=== PATIENT | female | born 1970 | race Asian ===

== ENCOUNTER 2020-08-22 14:40 | Outpatient (REF) | payer OTHER, SELFPAY | END 2020-08-22 14:41 | disposition home or self-care (01) | LOC: HO.LNP 14:40 | PROVIDERS: Visit Provider Family Medicine | DX: Z20.822 Contact with and (suspected) exposure to COVID-19 (principal) | CPT/HCPCS: U0003 ==

== ENCOUNTER → 2020-11-04 10:57 | Outpatient (BNVA) | payer OTHER, SELFPAY | PROVIDERS: PCP Internal Medicine; Visit Provider Nurse Practitioner Family | DX: M47.816 Spondylosis without myelopathy or radiculopathy, lumbar region (principal) | CPT/HCPCS: 99202 ==

== ENCOUNTER → 2020-11-18 11:25 | Outpatient (BNVA) | payer OTHER, SELFPAY | PROVIDERS: PCP Internal Medicine; Visit Provider Nurse Practitioner Family | DX: M47.816 Spondylosis without myelopathy or radiculopathy, lumbar region (principal) | CPT/HCPCS: 99212 ==

== ENCOUNTER → 2020-12-16 10:53 | Outpatient (BNVA) | payer OTHER, SELFPAY | PROVIDERS: PCP Internal Medicine; Visit Provider Nurse Practitioner Family | DX: M47.816 Spondylosis without myelopathy or radiculopathy, lumbar region (principal); Z79.899 Other long term (current) drug therapy | CPT/HCPCS: 99212 ==

== ENCOUNTER → 2021-01-20 09:27 | Outpatient (BNVA) | payer OTHER, SELFPAY | PROVIDERS: PCP Internal Medicine; Visit Provider Nurse Practitioner Family | DX: M47.816 Spondylosis without myelopathy or radiculopathy, lumbar region (principal) | CPT/HCPCS: Q3014 ==

== ENCOUNTER → 2021-02-17 10:27 | Outpatient (BNVA) | payer OTHER, SELFPAY | PROVIDERS: PCP Internal Medicine; Visit Provider Nurse Practitioner Family | DX: M47.816 Spondylosis without myelopathy or radiculopathy, lumbar region (principal) | CPT/HCPCS: 99212 ==

== ENCOUNTER → 2021-03-21 10:55 | Outpatient (BNVA) | payer OTHER, SELFPAY | PROVIDERS: PCP Internal Medicine; Visit Provider Family Medicine Adult Medicine | DX: M47.816 Spondylosis without myelopathy or radiculopathy, lumbar region (principal) | CPT/HCPCS: 99212 ==

== ENCOUNTER → 2021-04-18 15:26 | Outpatient (BNVA) | payer OTHER, SELFPAY | PROVIDERS: PCP Internal Medicine; Visit Provider Family Medicine Adult Medicine | DX: M47.816 Spondylosis without myelopathy or radiculopathy, lumbar region (principal); M96.1 Postlaminectomy syndrome, not elsewhere classified | CPT/HCPCS: 99212 ==

== ENCOUNTER → 2021-05-02 11:01 | Outpatient (BNVA) | payer OTHER, SELFPAY | PROVIDERS: PCP Internal Medicine; Visit Provider Family Medicine Adult Medicine | DX: Z51.81 Encounter for therapeutic drug level monitoring (principal); M47.816 Spondylosis without myelopathy or radiculopathy, lumbar region | CPT/HCPCS: 99212 ==

== ENCOUNTER → 2021-05-30 10:25 | Outpatient (BNVA) | payer OTHER, SELFPAY | PROVIDERS: PCP Internal Medicine; Visit Provider Family Medicine Adult Medicine | DX: Z51.81 Encounter for therapeutic drug level monitoring (principal); M47.816 Spondylosis without myelopathy or radiculopathy, lumbar region; M96.1 Postlaminectomy syndrome, not elsewhere classified | CPT/HCPCS: 99212 ==

== ENCOUNTER → 2021-06-27 10:53 | Outpatient (BNVA) | payer OTHER, SELFPAY | PROVIDERS: PCP Internal Medicine; Visit Provider Family Medicine Adult Medicine | DX: Z51.81 Encounter for therapeutic drug level monitoring (principal); M47.816 Spondylosis without myelopathy or radiculopathy, lumbar region; M96.1 Postlaminectomy syndrome, not elsewhere classified | CPT/HCPCS: 99212 ==

== ENCOUNTER → 2021-07-25 11:33 | Outpatient (BNVA) | payer OTHER, SELFPAY | PROVIDERS: PCP Internal Medicine; Visit Provider Nurse Practitioner Family | DX: Z51.81 Encounter for therapeutic drug level monitoring (principal); M47.816 Spondylosis without myelopathy or radiculopathy, lumbar region; M96.1 Postlaminectomy syndrome, not elsewhere classified | CPT/HCPCS: 99212 ==

== ENCOUNTER → 2021-08-25 10:38 | Outpatient (BNVA) | payer OTHER, SELFPAY | PROVIDERS: PCP Internal Medicine; Visit Provider Nurse Practitioner Family | DX: Z51.81 Encounter for therapeutic drug level monitoring (principal); F11.20 Opioid dependence, uncomplicated; G90.50 Complex regional pain syndrome I, unspecified; M96.1 Postlaminectomy syndrome, not elsewhere classified; M47.816 Spondylosis without myelopathy or radiculopathy, lumbar region | CPT/HCPCS: 99212 ==

== ENCOUNTER → 2021-09-21 11:03 | Outpatient (BNVA) | payer OTHER, SELFPAY | PROVIDERS: PCP Internal Medicine; Visit Provider Nurse Practitioner Family | DX: Z51.81 Encounter for therapeutic drug level monitoring (principal); F11.20 Opioid dependence, uncomplicated; G90.50 Complex regional pain syndrome I, unspecified; M96.1 Postlaminectomy syndrome, not elsewhere classified; M47.816 Spondylosis without myelopathy or radiculopathy, lumbar region | CPT/HCPCS: 99212 ==

== ENCOUNTER → 2021-10-19 11:00 | Outpatient (BNVA) | payer OTHER, SELFPAY | PROVIDERS: PCP Internal Medicine; Visit Provider Nurse Practitioner Family | DX: M96.1 Postlaminectomy syndrome, not elsewhere classified (principal); G90.50 Complex regional pain syndrome I, unspecified; M47.816 Spondylosis without myelopathy or radiculopathy, lumbar region; T40.2X5A Adverse effect of other opioids, initial encounter; K59.03 Drug induced constipation | CPT/HCPCS: 99212 ==

== ENCOUNTER → 2021-11-16 11:24 | Outpatient (BNVA) | payer OTHER, SELFPAY | PROVIDERS: PCP Internal Medicine; Visit Provider Nurse Practitioner Family | DX: Z51.81 Encounter for therapeutic drug level monitoring (principal); F11.20 Opioid dependence, uncomplicated; M96.1 Postlaminectomy syndrome, not elsewhere classified; M47.816 Spondylosis without myelopathy or radiculopathy, lumbar region; G90.50 Complex regional pain syndrome I, unspecified | CPT/HCPCS: 99212 ==

== ENCOUNTER → 2021-12-14 11:27 | Outpatient (BNVA) | payer OTHER, SELFPAY | PROVIDERS: PCP Internal Medicine; Visit Provider Nurse Practitioner Family | DX: Z51.81 Encounter for therapeutic drug level monitoring (principal); F11.20 Opioid dependence, uncomplicated | CPT/HCPCS: 99211 ==

== ENCOUNTER → 2022-01-09 10:00 | Outpatient (BNVA) | payer OTHER, SELFPAY | PROVIDERS: PCP Internal Medicine; Visit Provider Nurse Practitioner Family | DX: Z51.81 Encounter for therapeutic drug level monitoring (principal); M96.1 Postlaminectomy syndrome, not elsewhere classified; M47.816 Spondylosis without myelopathy or radiculopathy, lumbar region; G90.50 Complex regional pain syndrome I, unspecified; G89.4 Chronic pain syndrome; Z79.891 Long term (current) use of opiate analgesic | CPT/HCPCS: 99212 ==

== ENCOUNTER → 2022-02-06 11:32 | Outpatient (BNVA) | payer OTHER, SELFPAY | PROVIDERS: PCP Internal Medicine; Visit Provider Nurse Practitioner Family | DX: G89.4 Chronic pain syndrome (principal); M47.816 Spondylosis without myelopathy or radiculopathy, lumbar region; G90.50 Complex regional pain syndrome I, unspecified; M79.672 Pain in left foot; M96.1 Postlaminectomy syndrome, not elsewhere classified; Z79.891 Long term (current) use of opiate analgesic | CPT/HCPCS: 99212 ==

== ENCOUNTER → 2022-03-06 10:30 | Outpatient (BNVA) | payer OTHER, SELFPAY | PROVIDERS: PCP Internal Medicine; Visit Provider Nurse Practitioner Family | DX: Z79.891 Long term (current) use of opiate analgesic (principal) | CPT/HCPCS: 99211 ==

== ENCOUNTER 2022-03-13 06:06 | Outpatient (REF) | payer OTHER, SELFPAY ==
--- NOTE | ~2022-03-13 | FL_ITS ---
EXAMINATION: XR FLUOROSCOPY WITH IMAGES CLINICAL INFORMATION: Chronic pain syndrome COMPARISON: None. TECHNIQUE: Fluoroscopy performed by Dr. Cal Poole. Fluoroscopy time: 0.3 minutes. Cumulative Dose: 14.7 mGy. DAP: 3.41 Gy-cm2. Images: 2. FINDINGS: Radiopaque needle projects posterior to the L2-L3 level. FL/FL guidance in treatment room IMPRESSION: Fluoroscopic guidance with intervention at L2-L3. Please refer to procedural report for further information.
== END 2022-03-13 06:07 | disposition home or self-care (01) ==
LOC: HO.RADIR 06:06
PROVIDERS: Visit Provider Anesthesiology
DX: M96.1 Postlaminectomy syndrome, not elsewhere classified (principal); M47.816 Spondylosis without myelopathy or radiculopathy, lumbar region; G90.50 Complex regional pain syndrome I, unspecified; G89.4 Chronic pain syndrome; M79.672 Pain in left foot; Z79.891 Long term (current) use of opiate analgesic
CPT/HCPCS: 62323; J1170

== ENCOUNTER → 2022-03-15 11:31 | Outpatient (BNVA) | payer OTHER, SELFPAY | PROVIDERS: PCP Internal Medicine; Visit Provider Nurse Practitioner Family | DX: G89.4 Chronic pain syndrome (principal); M79.672 Pain in left foot; M96.1 Postlaminectomy syndrome, not elsewhere classified; M47.816 Spondylosis without myelopathy or radiculopathy, lumbar region; F43.23 Adjustment disorder with mixed anxiety and depressed mood; Z79.891 Long term (current) use of opiate analgesic | CPT/HCPCS: Q3014 ==

== ENCOUNTER → 2022-03-26 09:17 | Outpatient (BNVA) | payer OTHER, SELFPAY | PROVIDERS: PCP Internal Medicine; Visit Provider Nurse Practitioner Family | DX: M47.816 Spondylosis without myelopathy or radiculopathy, lumbar region (principal); M62.830 Muscle spasm of back; G89.4 Chronic pain syndrome; M96.1 Postlaminectomy syndrome, not elsewhere classified; Z79.891 Long term (current) use of opiate analgesic; M79.672 Pain in left foot; F43.23 Adjustment disorder with mixed anxiety and depressed mood | CPT/HCPCS: Q3014 ==

== ENCOUNTER → 2022-04-03 10:03 | Outpatient (BNVA) | payer OTHER, SELFPAY | PROVIDERS: PCP Internal Medicine; Visit Provider Nurse Practitioner Family | DX: Z79.891 Long term (current) use of opiate analgesic (principal) | CPT/HCPCS: 99211 ==

== ENCOUNTER → 2022-05-03 08:26 | Outpatient (BNVA) | payer OTHER, SELFPAY | PROVIDERS: PCP Internal Medicine; Visit Provider Nurse Practitioner Family | DX: Z51.81 Encounter for therapeutic drug level monitoring (principal); F11.20 Opioid dependence, uncomplicated; M47.816 Spondylosis without myelopathy or radiculopathy, lumbar region; G90.50 Complex regional pain syndrome I, unspecified; M62.830 Muscle spasm of back; M96.1 Postlaminectomy syndrome, not elsewhere classified; G89.4 Chronic pain syndrome; F43.23 Adjustment disorder with mixed anxiety and depressed mood | CPT/HCPCS: 99212 ==

== ENCOUNTER 2022-05-11 05:57 | Day surgery (SDC) | payer OTHER, SELFPAY ==
[2022-05-08 13:26] VITALS: BMI 26.3
--- NOTE | 2022-05-10 11:40 | P.CONAN_ITS ---
Documented by User: Jessica Espinal NP 05/10/22 11:41 HPI - Anesthesia Eval Consult details Narrative: 52yo F for Intrathecal Drug Delivery Implant PMFSH Active Problems Active Problems: All Active Problems (Updated 05/08/22 @ 13:24 by Brittney Lloyd, RN) Contact with and (suspected) exposure to other viral communicable diseases (Acute) Constipation due to opioid therapy (Acute) Opioid contract exists (Acute) Muscle spasm of back (Acute) Spondylosis of lumbar region without myelopathy or radiculopathy (Acute) CRPS (complex regional pain syndrome) type I (Acute) Left foot pain (Acute) Chronic pain syndrome (Acute) Adjustment disorder with mixed anxiety and depressed mood (Acute) Failed back syndrome, lumbar (Acute) Past Medical History Medical History (Updated 05/08/22 @ 13:24 by Brittney Lloyd RN) Adjustment disorder with mixed anxiety and depressed mood Anxiety and depression Chronic pain syndrome CRPS (complex regional pain syndrome) type I Failed back syndrome, lumbar Left foot pain Spondylosis of lumbar region without myelopathy or radiculopathy Surgical History Surgical History (Updated 05/11/22 @ 06:10 by Ivett Mata) H/O hand surgery H/O heart surgery History of adenoidectomy History of back surgery Previous section S/P tonsillectomy Tubal ligation status Social History Social History Patient Tobacco Use Status: Current someday Tobacco user Tobacco use type: Cigarette Cigarettes Per Day: 3 Years Smoked: 10 Smoked in Last 30 Days: Yes Use of substances other than those prescribed or required for medical reasons: No Are you DNR?: No Advance Directives: No Advance Directives Information Provided: Yes Meds Allergies Allergy/AdvReac Type Severity Reaction Status Date / Time No Known Allergies Allergy Verified 05/11/22 06:31 Home Medications Medication Instructions Recorded Confirmed Last Taken Type famotidine 40 mg tablet 40 mg PO DAILY 08/22/20 05/11/22 05/11/22 05:00 History lorazepam 0.5 mg tablet 0.5 mg PO BID PRN Anxiety 08/22/20 05/11/22 Unknown History mirtazapine 7.5 mg tablet 7.5 mg PO BEDTIME 08/22/20 05/11/22 05/11/22 05:00 History omeprazole 20 mg capsule,delayed 20 mg PO QAM 08/22/20 05/11/22 05/11/22 05:00 History release quetiapine 400 mg tablet 800 mg PO BEDTIME 08/22/20 05/11/22 Unknown History sertraline 50 mg tablet 50 mg PO DAILY 08/22/20 05/11/22 Unknown History trazodone 100 mg tablet 200 mg PO BEDTIME 11/04/20 05/11/22 Unknown History bupropion HCl 150 mg tablet,12 hr 150 mg PO DAILY 03/13/22 05/11/22 05/11/22 05:00 History sustained-release oxybutynin chloride 5 mg 5 mg PO DAILY 03/13/22 05/11/22 05/11/22 05:00 History tablet,extended release 24 hr clonidine HCl 0.1 mg tablet 0.1 mg PO BID PRN Anxiety 05/03/22 05/11/22 05/11/22 05:00 History Exam Exam Date and Time: May 10, 2022 1140 Height,Weight and Vital Signs: Height 5 ft 6 in Weight 73.936 kg Assessment and Plan Assessment Anesthesia Assessment: Chart Reviewed Documented by User: Yaya Hdz MD 05/11/22 07:29 [facility] Past Medical History Medical History (Updated 05/08/22 @ 13:24 by Brittney Lloyd RN) Adjustment disorder with mixed anxiety and depressed mood Anxiety and depression Chronic pain syndrome CRPS (complex regional pain syndrome) type I Failed back syndrome, lumbar Left foot pain Spondylosis of lumbar region without myelopathy or radiculopathy Surgical History Surgical History (Updated 05/11/22 @ 06:10 by Ivett Mata) H/O hand surgery H/O heart surgery History of adenoidectomy History of back surgery Previous section S/P tonsillectomy Tubal ligation status History of Problems with Anesthesia: No Social History Social History Patient Tobacco Use Status: Current someday Tobacco user Tobacco use type: Cigarette Cigarettes Per Day: 3 Years Smoked: 10 Smoked in Last 30 Days: Yes Use of substances other than those prescribed or required for medical reasons: No Are you DNR?: No Advance Directives: No Advance Directives Information Provided: Yes Meds Allergies Allergy/AdvReac Type Severity Reaction Status Date / Time No Known Allergies Allergy Verified 05/11/22 06:31 Home Medications Medication Instructions Recorded Confirmed Last Taken Type famotidine 40 mg tablet 40 mg PO DAILY 08/22/20 05/11/22 05/11/22 05:00 History lorazepam 0.5 mg tablet 0.5 mg PO BID PRN Anxiety 08/22/20 05/11/22 Unknown History mirtazapine 7.5 mg tablet 7.5 mg PO BEDTIME 08/22/20 05/11/22 05/11/22 05:00 History omeprazole 20 mg capsule,delayed 20 mg PO QAM 08/22/20 05/11/22 05/11/22 05:00 History release quetiapine 400 mg tablet 800 mg PO BEDTIME 08/22/20 05/11/22 Unknown History sertraline 50 mg tablet 50 mg PO DAILY 08/22/20 05/11/22 Unknown History trazodone 100 mg tablet 200 mg PO BEDTIME 11/04/20 05/11/22 Unknown History bupropion HCl 150 mg tablet,12 hr 150 mg PO DAILY 03/13/22 05/11/22 05/11/22 05:00 History sustained-release oxybutynin chloride 5 mg 5 mg PO DAILY 03/13/22 05/11/22 05/11/22 05:00 History tablet,extended release 24 hr clonidine HCl 0.1 mg tablet 0.1 mg PO BID PRN Anxiety 05/03/22 05/11/22 05/11/22 05:00 History Exam Airway Mallampati Class: III TM Dist: >3cm Neck ROM: Full Heart: rrr Lungs: clear Assessment and Plan Final Anesthetic Review History of Problems with Anesthesia: No ASA Class: II Final Preanesthetic Review: No Changes in Pt Med Stat, Meds/Allgs Chart Reviewed, Consent Obtained/Reviewed and Anes Risks/Benef Reviewed Patient Risk: Low Procedure Risk: Low Anesthetic Plan Anesthetic Plan: MAC: Disposition: Standard PACU
--- NOTE | 2022-05-10 17:29 | MHC.SHP ---
Pre-Procedural Eval Section A Date of Service: 05/10/22 Changes since office visit: Yes Patient answered all questions The History & Physical has been completed within 30 days and I have reviewed it.: No Section B Chief Complaint: Postlaminectomy syndrome, not elsewhere classified Details of Present Illness: as above Relevant Family History (Specify if Yes): No Relevant Social History: None Present Medications: see Short Stay Collaborative assessment Medical History: No relevant PMH History of Previous Operations: Relevant previous surgery/procedure and date(s) ( L5-S1 laminectomy with fusion and bilateral pedicular instrumentation) Allergies: Allergies Allergy/AdvReac Type Severity Reaction Status Date / Time No Known Allergies Allergy Verified 05/03/22 08:43 Review of Systems Sugical H&P ROS: Negative: Constitution, Cardiovascular, Respiratory, Neurological, Psychiatric, Hem-Onc, Allergic/Immunologic, Gastrointestinal, Genitourinary, Musculoskeletal, Integumentary, Endocrine and Eyes/Ears/Nose/Throat Exam Surgical H&P Exam: Normal: HEENT, Normal: Heart, Normal: Lungs, Normal: Extremities, Normal: Abdomen, Normal: Skin and Normal: Neurological Plan Diagnosis/Plan: Unchanged I have reviewed the history and physical and performed a pertinent physical examination on my patient. No changes have occurred unless specified.
[2022-05-11] VITALS (10 sets, daily range): BP systolic 120–147; BP diastolic 74–93; PULSE 71–90; RESP 10–17; TEMP 36.1–36.3; O2SAT 90–99; BMI 28.3
--- NOTE | ~2022-05-11 | FL_ITS ---
EXAMINATION: XR FLUOROSCOPY WITH IMAGES CLINICAL INFORMATION: Intrathecal drug delivery implant COMPARISON: Fluoroscopic spot views 03/13/2022 TECHNIQUE: Fluoroscopy performed by Dr. Cal Poole. Fluoroscopy time: 0.3 minutes. Cumulative Dose: 7.76 mGy. DAP: 2.11 Gy-cm2. Images: 2. FINDINGS: The AP view demonstrates needle or linear metallic marker directed towards the mid interlaminar lumbar spine. There is probable fusion hardware again seen lower lumbar spine. The lateral view shows guidewire or fine catheter ascending the spinal canal with tips at mid to lower thoracic region. There is an old appearing lower thoracic vertebral compression deformity with density consistent with prior augmentation. FL/FL guidance in OR IMPRESSION: Fluoroscopy for pain management procedure.
--- NOTE | 2022-05-11 06:45 | PC.NURSE ---
Patient arrived to preop. 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 Dr. Munoz made aware. Baseline EKG obtained, SR with RBBB. Dr. Hdz aware. Okay to proceed with surgery.
--- NOTE | 2022-05-11 06:54 | ECG_ITS ---
Test Reason : preop Blood Pressure : / mmHG Vent. Rate : 080 BPM Atrial Rate : 080 BPM P-R Int : 182 ms QRS Dur : 094 ms QT Int : 392 ms P-R-T Axes : 028 046 063 degrees QTc Int : 452 ms Normal sinus rhythm Incomplete right bundle branch block Nonspecific T wave abnormality Abnormal ECG No previous ECGs available Referred By: Terrence Munoz Electronically Signed By:ADILIA ANDREA
[2022-05-11] MEDS: Lactated Ringers 1,000 ML 100 ML IVCONT (07:34)
[2022-05-11 09:47] LABS: MRSA Nasal PCR NEGATIVE (Negative); SA Nasal PCR POSITIVE (Negative)
--- NOTE | 2022-05-11 10:47 | P.BOP_ITS ---
Brief Operative Note Date of Service: 05/11/22 Pre-op diagnosis: postlaminectomy syndrome Post-op diagnosis: same Procedure: implantation of the ITDD Implants: synchromed II intrathecal pump [employer] and ascenda epidural catheter Surgeon: Cal Poole MD Anesthesia: MAC Was an Named Account Executive used for this Procedure?: No Estimated blood loss (mL): 11 Pathology: none sent Condition: stable Disposition: PACU
--- NOTE | 2022-05-11 10:49 | W.PM.OPN ---
Operative Note Operative Note Date of Service: 05/11/22 Narrative: After obtaining informed consent and explaining to the patient risks, benefits and alternatives to treat her pain, the patient was brought up to the operating room where she was positioned prone on the OR table.? [employer] monitors were applied and the patient was deeply sedated.? The patient received antibiotic cefazolin 2g intravenously 30 minutes before incision. Time-out was performed delineating correct site and side of the procedure, name and date of of the patient, risk of fire, need for antibiotic prophylaxis risk of DVT and need for DVT prophylaxis. ? After that the patient?s entire back? and upper buttocks were prepped with Chloraprep and draped with full body drape including ioban film. Sterilely drape C-arm was brought over the OR field and square pictures of the L1, L2, L3 vertebrae were demonstrated on the screen. the entrance point? for the catheter was chosen as the L2-L3 interspace. In the strict midline fashion 8.5 cm vertical skin incision was made with #10 scalpel. The incision was widened with the Supriyaaner retractor and deepened with electrocautery. Thorough hemostasis was obtained using electrocautery. The prevertebral fascia was freed from overlaying tissues. After that 100 mm introducer spinal 16 g needle was incerted under x-ray guidance in the projection of the right L3 pedicle on AP view. The needle advanced under the x-ray guidance with intemittent A-P? and lateral pictures toward the spinal canal. When on the lateral view the needle entered the spinal canal the stylet was removed and the clear flow of the CSF was obtain through the needle hub. Intrathecal Ascenda catheter was inserted through the needle and advanced under the x-ray guidance toward the T8 mid body vertebral body projection. The stylet was removed from the catheter and the flow of CSF fluid straw colored and clear was observed coming from the catheter.? Purse-string suture was applied surrounding? the a needle and it was tied.? After that the needle was withdrawn with care taken to keep the catheter in place.? Anchoring device was dislodged on the catheter and advanced until it met prevertebral fascia.? It was engaged on the body of the catheter.? Two anchoring Tycron sutures were used to suture left wing of the anchor to prevertebral fascia and 1 anchoring suture was used to stitch in the right wing of anchoring device to prevertebral fascia. ?After that the thorough irrigation of the wound was performed and wound was packed with vancomycin soaked 4 x 4. Attention then was concentrated on the patient's left upper buttock.Sterilely draped C-arm was brought over the operative field again and position of the patient's RIGHT iliac crest was demonstrated on the screen.? 2 cm below the projection of the? iliac crest? to the skin of the local anesthetic lidocaine plus Ropivacaine 1-1 was injected in the linear horizontal fashion.? After that 9 cm incision was performed in patient's? left upper buttock alongside the injected line. ? Thorough hemostasis was obtained using cautery device.? After that the wound was widened and made 2 cm deep .? The wound was extended medially and laterally as well as caudally and cranially to form the space to accommodate the body of the pump.? Thorough hemostasis was performed.? The wound was irrigated with vancomycin containing normal saline and then tunneling device was used to connect both wounds and dislodged the intrathecal catheter into the side wound.? The catheter was trimmed appropriately after that and sutureless connection device was mounted on the catheter.? After that sutureless connection device was connected to the pump.? Aspiration of the side port of the pump revealed clear flow of CSF.? Two anchoring 1-0 Tycron sutures were applied in most superior lateral and the most inferior lateral corner of the wound.? After that the sutures were connected to the brackets on the body of the pump, intrathecal catheter was gathered behind the body of the pump and pump was dislodged into the wound.? After that the anchoring sutures were tied.? After that noncoring needle was used again to reach side port of the pump in clear flow of CSF 0.5 mL was demonstrated in the syringe connected to the noncoring needle. ? Thorough irrigation was performed again in both wounds.? Thorough hemostasis was verified.? 0 polisorb sutures were used to close both wounds, 2-0 suture of the same nature were used to approximate the skin.? [place] were applied to the skin line and Bacitracin ointment was applied to the staple lines.? Sterile dressing with sterile 4x4s was performed, abdominal binder was applied.? Upon completion of the procedure patient was awaken and taken outside of the operating room to recovery room where she recovered uneventfully.? .
[2022-05-11] MEDS: fentaNYL citrate/PF 100 MCG/2 ML VIAL 25 MCG IVPUSH (11:00)
== END 2022-05-11 12:30 | disposition home or self-care (01) ==
PROVIDERS: Nurse Practitioner Family; PCP Internal Medicine; Visit Provider Anesthesiology
PROC: (CPT 62350; principal; 2022-05-11 07:30)
DX: M96.1 Postlaminectomy syndrome, not elsewhere classified (principal); G89.4 Chronic pain syndrome; M47.816 Spondylosis without myelopathy or radiculopathy, lumbar region; G90.50 Complex regional pain syndrome I, unspecified; M62.830 Muscle spasm of back; F43.23 Adjustment disorder with mixed anxiety and depressed mood; Z79.891 Long term (current) use of opiate analgesic
CPT/HCPCS: 62350; 62362; 87640; 87641; 93005; C1755; C1772; J0690; J2250; J2795; J3010; J3370

== ENCOUNTER → 2022-05-17 10:24 | Outpatient (BNVA) | payer OTHER, SELFPAY | PROVIDERS: PCP Internal Medicine; Visit Provider Anesthesiology | DX: G89.4 Chronic pain syndrome (principal); M96.1 Postlaminectomy syndrome, not elsewhere classified; M47.816 Spondylosis without myelopathy or radiculopathy, lumbar region; G90.50 Complex regional pain syndrome I, unspecified; M62.830 Muscle spasm of back; F43.23 Adjustment disorder with mixed anxiety and depressed mood; Z79.891 Long term (current) use of opiate analgesic | CPT/HCPCS: 99212 ==

== ENCOUNTER → 2022-05-24 10:24 | Outpatient (BNVA) | payer OTHER, SELFPAY | PROVIDERS: PCP Internal Medicine; Visit Provider Anesthesiology | DX: G89.4 Chronic pain syndrome (principal); M96.1 Postlaminectomy syndrome, not elsewhere classified; M47.816 Spondylosis without myelopathy or radiculopathy, lumbar region; G90.50 Complex regional pain syndrome I, unspecified; M62.830 Muscle spasm of back; F43.23 Adjustment disorder with mixed anxiety and depressed mood; Z79.891 Long term (current) use of opiate analgesic | CPT/HCPCS: 99212 ==

== ENCOUNTER → 2022-05-30 10:41 | Outpatient (BNVA) | payer OTHER, SELFPAY | PROVIDERS: PCP Internal Medicine; Visit Provider Anesthesiology | DX: G89.4 Chronic pain syndrome (principal); M96.1 Postlaminectomy syndrome, not elsewhere classified; M47.816 Spondylosis without myelopathy or radiculopathy, lumbar region; G90.50 Complex regional pain syndrome I, unspecified; M62.830 Muscle spasm of back; F43.23 Adjustment disorder with mixed anxiety and depressed mood; Z79.891 Long term (current) use of opiate analgesic | CPT/HCPCS: 99212 ==

== ENCOUNTER → 2022-06-07 09:31 | Outpatient (BNVA) | payer OTHER, SELFPAY | PROVIDERS: PCP Internal Medicine; Visit Provider Anesthesiology | DX: M96.1 Postlaminectomy syndrome, not elsewhere classified (principal); S22.080A Wedge compression fracture of T11-T12 vertebra, initial encounter for closed fracture; G89.4 Chronic pain syndrome; G90.59 Complex regional pain syndrome I of other specified site; M47.816 Spondylosis without myelopathy or radiculopathy, lumbar region; M62.830 Muscle spasm of back; F43.23 Adjustment disorder with mixed anxiety and depressed mood; F41.8 Other specified anxiety disorders; Z45.1 Encounter for adjustment and management of infusion pump; Z79.891 Long term (current) use of opiate analgesic | CPT/HCPCS: 99212 ==

== ENCOUNTER → 2022-06-13 09:59 | Outpatient (BNVA) | payer OTHER, SELFPAY | PROVIDERS: PCP Internal Medicine; Visit Provider Anesthesiology | DX: M96.1 Postlaminectomy syndrome, not elsewhere classified (principal); G90.50 Complex regional pain syndrome I, unspecified; M47.816 Spondylosis without myelopathy or radiculopathy, lumbar region; M62.830 Muscle spasm of back; F43.23 Adjustment disorder with mixed anxiety and depressed mood; G89.4 Chronic pain syndrome; Z79.891 Long term (current) use of opiate analgesic | CPT/HCPCS: 62370; 99212 ==

== ENCOUNTER → 2022-06-20 10:31 | Outpatient (BNVA) | payer OTHER, SELFPAY | PROVIDERS: PCP Internal Medicine; Visit Provider Anesthesiology | DX: M96.1 Postlaminectomy syndrome, not elsewhere classified (principal); M47.816 Spondylosis without myelopathy or radiculopathy, lumbar region; G90.50 Complex regional pain syndrome I, unspecified; M62.830 Muscle spasm of back; G89.4 Chronic pain syndrome; F43.23 Adjustment disorder with mixed anxiety and depressed mood; Z79.891 Long term (current) use of opiate analgesic; Z96.89 Presence of other specified functional implants | CPT/HCPCS: 99212 ==

== ENCOUNTER → 2022-07-04 11:33 | Outpatient (BNVA) | payer OTHER, SELFPAY | PROVIDERS: PCP Internal Medicine; Visit Provider Anesthesiology | DX: M96.1 Postlaminectomy syndrome, not elsewhere classified (principal); G89.4 Chronic pain syndrome; G90.50 Complex regional pain syndrome I, unspecified; M47.816 Spondylosis without myelopathy or radiculopathy, lumbar region; M62.830 Muscle spasm of back; R00.0 Tachycardia, unspecified; F43.23 Adjustment disorder with mixed anxiety and depressed mood; Z45.1 Encounter for adjustment and management of infusion pump; Z76.0 Encounter for issue of repeat prescription; Z79.891 Long term (current) use of opiate analgesic | CPT/HCPCS: 99212 ==

== ENCOUNTER → 2022-07-18 10:23 | Outpatient (BNVA) | payer OTHER, SELFPAY | PROVIDERS: PCP Internal Medicine; Visit Provider Anesthesiology | DX: Z45.89 Encounter for adjustment and management of other implanted devices (principal); M96.1 Postlaminectomy syndrome, not elsewhere classified; M47.816 Spondylosis without myelopathy or radiculopathy, lumbar region; G90.50 Complex regional pain syndrome I, unspecified; M62.830 Muscle spasm of back; F43.23 Adjustment disorder with mixed anxiety and depressed mood; R00.0 Tachycardia, unspecified; G89.4 Chronic pain syndrome; Z79.891 Long term (current) use of opiate analgesic | CPT/HCPCS: 99212 ==

== ENCOUNTER → 2022-07-30 08:58 | Outpatient (BNVA) | payer OTHER, SELFPAY | PROVIDERS: PCP Internal Medicine; Visit Provider Anesthesiology | DX: M96.1 Postlaminectomy syndrome, not elsewhere classified (principal); M47.816 Spondylosis without myelopathy or radiculopathy, lumbar region; G90.50 Complex regional pain syndrome I, unspecified; M62.830 Muscle spasm of back; F43.23 Adjustment disorder with mixed anxiety and depressed mood; R00.0 Tachycardia, unspecified; G89.4 Chronic pain syndrome; Z79.891 Long term (current) use of opiate analgesic | CPT/HCPCS: 62370; 99212 ==

== ENCOUNTER → 2022-09-10 10:00 | Outpatient (BNVA) | payer OTHER, SELFPAY | PROVIDERS: PCP Internal Medicine; Visit Provider Anesthesiology | DX: M96.1 Postlaminectomy syndrome, not elsewhere classified (principal); M47.816 Spondylosis without myelopathy or radiculopathy, lumbar region; M62.830 Muscle spasm of back; R00.0 Tachycardia, unspecified; F43.23 Adjustment disorder with mixed anxiety and depressed mood; G90.50 Complex regional pain syndrome I, unspecified; G89.4 Chronic pain syndrome; Z79.891 Long term (current) use of opiate analgesic; Z96.89 Presence of other specified functional implants | CPT/HCPCS: 62370; 99212 ==

== ENCOUNTER → 2022-10-15 | Outpatient (BNVA) | payer OTHER, SELFPAY | PROVIDERS: PCP Internal Medicine; Visit Provider Anesthesiology | DX: G89.4 Chronic pain syndrome (principal); G90.50 Complex regional pain syndrome I, unspecified; M96.1 Postlaminectomy syndrome, not elsewhere classified; M47.816 Spondylosis without myelopathy or radiculopathy, lumbar region; M62.830 Muscle spasm of back; F43.23 Adjustment disorder with mixed anxiety and depressed mood; Z96.82 Presence of neurostimulator; Z79.891 Long term (current) use of opiate analgesic | CPT/HCPCS: 62370 ==

== ENCOUNTER → 2022-11-12 13:28 | Outpatient (BNVA) | payer OTHER, SELFPAY | PROVIDERS: PCP Internal Medicine; Visit Provider Anesthesiology | DX: M96.1 Postlaminectomy syndrome, not elsewhere classified (principal); M47.816 Spondylosis without myelopathy or radiculopathy, lumbar region; M62.830 Muscle spasm of back; G90.50 Complex regional pain syndrome I, unspecified; F43.23 Adjustment disorder with mixed anxiety and depressed mood; R00.0 Tachycardia, unspecified; G89.4 Chronic pain syndrome; Z79.891 Long term (current) use of opiate analgesic | CPT/HCPCS: 62370; 99212 ==

== ENCOUNTER → 2022-12-17 10:58 | Outpatient (BNVA) | payer OTHER, SELFPAY | PROVIDERS: PCP Internal Medicine; Visit Provider Anesthesiology | DX: G90.50 Complex regional pain syndrome I, unspecified (principal); M96.1 Postlaminectomy syndrome, not elsewhere classified; M47.816 Spondylosis without myelopathy or radiculopathy, lumbar region; M62.830 Muscle spasm of back; G89.4 Chronic pain syndrome; F43.23 Adjustment disorder with mixed anxiety and depressed mood; Z79.891 Long term (current) use of opiate analgesic; Z45.1 Encounter for adjustment and management of infusion pump | CPT/HCPCS: 62370; 99212 ==

== ENCOUNTER → 2023-02-25 11:08 | Outpatient (BNVA) | payer OTHER, SELFPAY | PROVIDERS: PCP Internal Medicine; Visit Provider Anesthesiology ==

== ENCOUNTER 2023-04-29 10:57 | Outpatient (AMB) | payer OTHER, SELFPAY ==
[2023-04-29 11:41] VITALS: BP 135/87; PULSE 104; O2SAT 98
--- NOTE | 2023-04-29 11:41 | A.OFFVIS_ITS ---
Intake Vital Signs 04/29/23 11:41 Height 5 ft 3 in Weight 169 lb 2 oz BMI 30.0 BP 135/87 Blood Pressure Location Rt brachial Position Sitting Pulse 104 H Pulse Source Pulse Oximeter Pulse Oximetry (%) 98 Oxygen Delivery Method Room Air Intake Visit Reasons: ITDD Refill Allergies No Known Allergies Allergy (Verified 02/25/23 11:25) HPI HPI Comments History of Present Illness Details Celina is back in my office for the pain pump refill and adjustment see report as below.? She is suffering from postlaminectomy syndrome, she is also suffering from pain secondary to compression fractures T11.? The implant was done on 05/11/2022.? She reports poor pain control at night. We incread the concentration of clonidine at her admixture to 400 micro g. She reported no side effects of the clonidine, we continue to escalate.To help her to sleep better at night I will increase continuous dose of the medications in her pump. The dose of the continuous will be increased to 80 micro g of fentanyl a day. with her PTM she will recieve clonidine total dose 115 mcg a day. [facility] Medical History (Updated 07/05/22 @ 08:02 by Cal Poole MD) Anxiety and depression Adjustment disorder with mixed anxiety and depressed mood Left foot pain Chronic pain syndrome CRPS (complex regional pain syndrome) type I Failed back syndrome, 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 Surgical History (Updated 05/11/22 @ 06:10 by Ivett Mata) History of adenoidectomy Previous section Tubal ligation status History of back surgery H/O hand surgery H/O heart surgery S/P tonsillectomy Social History Patient Tobacco Use Status: Current someday Tobacco user Tobacco use type: Cigarette Cigarettes Per Day: 3 Years Smoked: 10 Review of Systems Const All systems reviewed & are unremarkable except as noted in HPI and below ENT Reports Normal hearing present Neuro Reports Normal hearing present and Denies Sensory deficit (Neuro) Physical Exam Vital Signs: Last Vital Signs Pulse 104 H 04/29/23 11:41 BP 135/87 04/29/23 11:41 Pulse Ox 98 04/29/23 11:41 Oxygen Delivery Method Room Air 04/29/23 11:41 BMI result Body Mass Index 30.0 Const General: cooperative, comfortable and no acute distress Nutritional Appearance: average body habitus Limitations: no limitations HEENT Head: Yes normal to inspection, Yes normocephalic and Yes atraumatic Ears: hearing grossly normal bilaterally Face and sinus: Yes normal facial exam and Yes face symmetric Mouth: moist mucous membranes Eyes General: appearance normal, both eyes and all related structures Visual Syed: normal visual syed by confrontation Pupils: Equal, round and reactive pupils present EOM: EOMs intact bilaterally Neck Neck: Yes normal visual inspection, Yes no lymphadenopathy, Yes supple, No anterior neck swelling and Yes no JVD Resp Effort & Inspection: normal respiratory effort, able to speak in complete sent ences, no audible wheezes, no cough, no respiratory distress and symmetric chest movement Cardio Jugular venous distension: no JVD GI Inspection: Yes normal to inspection General: Yes no CVA tenderness Back/Spine/Pelvis Back: no CVA tenderness Cervical Spine: cervical ROM normal, cervical muscular tenderness, pain with cervical ROM and No Cervical spine tenderness Thoracic/Lumbar Spine: thoracic and lumbar spine normal to inspection, Thoracic/lumbar spine scar(s), Lasegue's sign negative, straight leg raise negative bilaterally, pain with thoraco-lumbar ROM, paraspinal muscle tenderness, thoraco-lumbar ROM limited, thoraco-lumbar spasm, No thoracic spinal tenderness and No lumbar spinal tenderness Pelvis: buttock tenderness on the left Sacroiliac joints: bilaterally tender to palpation Skin General skin exam: no rashes or lesions noted Neuro Cranial nerves: Yes Equal, round and reactive pupils present and Yes Normal hearing present Cognition (Neuro): normal cognition Sensory Exam: No Sensory deficit (Neuro) Assessment & Plan Assessment & Plan (1) Chronic pain syndrome: Code(s): G89.4 - Chronic pain syndrome (2) Opioid contract exists: Code(s): Z79.891 - alf (current) use of opiate analgesic (3) Failed back syndrome, lumbar: Code(s): M96.1 - Postlaminectomy syndrome, not elsewhere classified (4) Spondylosis of lumbar region without myelopathy or radiculopathy: Code(s): M47.816 - Spondylosis without myelopathy or radiculopathy, lumbar region (5) CRPS (complex regional pain syndrome) type I: Code(s): G90.50 - Complex regional pain syndrome I, unspecified (6) Muscle spasm of back: Code(s): M62.830 - Muscle spasm of back Plan: Intrathecal pump refill. THE PATIENT CAME TODAY to the office FOR THE CHANGE OF THE MEDICATION IN her PAIN PUMP. The name and date of were verified and informed consent was obtained for the procedure. ?The pump was interrogated and the residual amount of fluid was found to be 1.9 mL. SHE WAS POSITIONED prone on the bed AND THE AREA OF THE INTRATHECAL PUMP WAS PREPPED WITH CHLORAPREP. The fenestrated drape was sterilely applied over the area of the pump. Sterile gloves were worn and of the aspiration system was as sembled containing 2 in 22 gauge noncoring needle, the needle was connected to extension tubing which was connected to the 20 cc sterile syringe. The pain pump was palpated under the skin in the patient's right buttock area. The needle was inserted through the skin and the central plug of the pain pump and fluid was aspirated. The clear fluid was going into the syringe the total amount of the fluid was 1.9 mL .. After that a new batch? of medication was obtained which was containing Fentanyl in concentration 1000 micro g/ml and bupivacaine 40 mg per ml plus clonidine 400 mcg per ml. The admixture was made in 20 cc syringe prepared by [facility] compounding pharmacy. The syringe was connected to the bacterial filter, and then connected to the extension tubing. After that the medication in the syringe was slowly instilled into the pump with aspirations at 15 and 5 cc willis.? The pump was reprogrammed for the doses of Fentanyl 80 mcg per day with corresponding dose of bupivacaine and clonidine? The patient was given 6 doses of PTM 35 micrograms of fentanyl intrathecally? every 3 hours with maximum 6 activations per 24 hour. Next appointment for refill 06/30/2023. (7) Adjustment disorder with mixed anxiety and depressed mood: Code(s): F43.23 - Adjustment disorder with mixed anxiety and depressed mood Plan: She reports bupivacaine helps her pain as well providing numbing and tingling sensation instead of pain sensation. She reports significant pain relief during daytime but again reports unable to sleep well at night because she feels pain. we increased clonidine in her pump and that might be good for her sleep. I increased continuos dose of the meds with fentanyl now at 80 mcg a day continuos. On demand it was left as before. She has naloxone. . (8) Tachycardia: Code(s): R00.0 - Tachycardia, unspecified Coding Level of Care Code Est Pt Level 4 (71156) Procedure Only Diagnoses Chronic pain syndrome G89.4 Opioid contract exists Z79.891 Failed back syndrome, lumbar M96.1 Spondylosis of lumbar region without myelopathy or radiculopathy M47.816 CRPS (complex regional pain syndrome) type I G90.50 Muscle spasm of back M62.830 Adjustment disorder with mixed anxiety and depressed mood F43.23 Tachycardia R00.0
== END 2023-04-29 12:25 | disposition home or self-care (01) ==
PROVIDERS: PCP Internal Medicine; Visit Provider Anesthesiology
DX: Z45.1 Encounter for adjustment and management of infusion pump (principal); G89.4 Chronic pain syndrome; M96.1 Postlaminectomy syndrome, not elsewhere classified; M47.816 Spondylosis without myelopathy or radiculopathy, lumbar region; G90.50 Complex regional pain syndrome I, unspecified; M62.830 Muscle spasm of back; F43.23 Adjustment disorder with mixed anxiety and depressed mood; R00.0 Tachycardia, unspecified
CPT/HCPCS: 62370

== ENCOUNTER → 2023-04-29 10:57 | Outpatient (BNVA) | payer OTHER, SELFPAY | PROVIDERS: PCP Internal Medicine; Visit Provider Anesthesiology | DX: Z45.1 Encounter for adjustment and management of infusion pump (principal); G89.4 Chronic pain syndrome; M96.1 Postlaminectomy syndrome, not elsewhere classified; M47.816 Spondylosis without myelopathy or radiculopathy, lumbar region; G90.50 Complex regional pain syndrome I, unspecified; M62.830 Muscle spasm of back; Z79.891 Long term (current) use of opiate analgesic | CPT/HCPCS: 62370 ==

== ENCOUNTER 2023-05-13 10:45 | Outpatient (AMB) | payer OTHER, SELFPAY ==
[2023-05-13 10:55] VITALS: BP 136/80; PULSE 100; RESP 18; O2SAT 97; BMI 30.1
--- NOTE | 2023-05-13 10:55 | MHC.OFFVIS ---
Intake Vital Signs 05/13/23 10:55 Height 5 ft 3 in Weight 170 lb BMI 30.1 BP 136/80 Blood Pressure Location Lt brachial Position Sitting Respiration 18 Pulse 100 Pulse Source Pulse Oximeter Pulse Oximetry (%) 97 Oxygen Delivery Method Room Air Intake Visit Reasons: ITDD Pump Adjustment Per Jaclyn Intake Note: Patient comes in for pain pump adjustment. Allergies No Known Allergies Allergy (Verified 05/13/23 10:56) HPI HPI Comments History of Present Illness Details Celina is back in my office for the pain pump refill and adjustment see report as below.? She is suffering from postlaminectomy syndrome, she is also suffering from pain secondary to compression fractures T11.? The implant was done on 05/11/2022.? She reports better pain control. After we increase concentration of the clonidine to 400 micro g per mL she reported better ability to sleep at night. She reported better mobility and longer pain relief lasting after each PTM does she applies. She reports about 2 hours of good pain relieve after each PTM does. I today increased main medication in her doses from 35 mcg fentanyl to 45 micro g. We will be able to press this button 6 times a day with interval of 3 hours. That effectively covers at least 18 hours of good pain relief. The dose of the continuous will be continued at 80 micro g of fentanyl a day. Her new refill after a moderate dose increase will be on 06/20/2023. [facility] Medical History (Updated 07/05/22 @ 08:02 by Cal Poole MD) Anxiety and depression Adjustment disorder with mixed anxiety and depressed mood Left foot pain Chronic pain syndrome CRPS (complex regional pain syndrome) type I Failed back syndrome, 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 Surgical History (Updated 05/11/22 @ 06:10 by Ivett Mata) History of adenoidectomy Previous section Tubal ligation status History of back surgery H/O hand surgery H/O heart surgery S/P tonsillectomy Social History Patient Tobacco Use Status: Current someday Tobacco user Tobacco use type: Cigarette Cigarettes Per Day: 3 Years Smoked: 10 Review of Systems Const All systems reviewed & are unremarkable except as noted in HPI and below ENT Reports Normal hearing present Neuro Reports Normal hearing present and Denies Sensory deficit (Neuro) Physical Exam Vital Signs: Last Vital Signs Pulse 100 05/13/23 10:55 Resp 18 05/13/23 10:55 BP 136/80 05/13/23 10:55 Pulse Ox 97 05/13/23 10:55 Oxygen Delivery Method Room Air 05/13/23 10:55 BMI result Body Mass Index 30.1 Const General: cooperative, comfortable and no acute distress Nutritional Appearance: average body habitus Limitations: no limitations HEENT Head: Yes normal to inspection, Yes normocephalic and Yes atraumatic Ears: hearing grossly normal bilaterally Face and sinus: Yes normal facial exam and Yes face symmetric Mouth: moist mucous membranes Eyes General: appearance normal, both eyes and all related structures Visual Syed: normal visual syed by confrontation Pupils: Equal, round and reactive pupils present EOM: EOMs intact bilaterally Neck Neck: Yes normal visual inspection, Yes no lymphadenopathy, Yes supple, No anterior neck swelling and Yes no JVD Resp Effort & Inspection: normal respiratory effort, able to speak in complete sentences, no audible wheezes, no cough, no respiratory distress and symmetric chest movement Cardio Jugular venous distension: no JVD GI Inspection: Yes normal to inspection General: Yes no CVA tenderness Back/Spine/Pelvis Back: no CVA tenderness Cervical Spine: cervical ROM normal, cervical muscular tenderness, pain with cervical ROM and No Cervical spine tenderness Thoracic/Lumbar Spine: thoracic and lumbar spine normal to inspection, Thoracic/lumbar spine scar(s), Lasegue's sign negative, straight leg raise negative bilaterally, pain with thoraco-lumbar ROM, paraspinal muscle tenderness, thoraco-lumbar ROM limited, thoraco-lumbar spasm, No thoracic spinal tenderness and No lumbar spinal tenderness Pelvis: buttock tenderness on the left Sacroiliac joints: bilaterally tender to palpation Skin General skin exam: no rashes or lesions noted Neuro Cranial nerves: Yes Equal, round and reactive pupils present and Yes Normal hearing present Cognition (Neuro): normal cognition Sensory Exam: No Sensory deficit (Neuro) Assessment & Plan Assessment & Plan (1) Chronic pain syndrome: Code(s): G89.4 - Chronic pain syndrome (2) Opioid contract exists: Code(s): Z79.891 - [employer] (current) use of opiate analgesic (3) Failed back syndrome, lumbar: Code(s): M96.1 - Postlaminectomy syndrome, not elsewhere classified (4) Spondylosis of lumbar region without myelopathy or radiculopathy: Code(s): M47.816 - Spondylosis without myelopathy or radiculopathy, lumbar region (5) CRPS (complex regional pain syndrome) type I: Code(s): G90.50 - Complex regional pain syndrome I, unspecified (6) Muscle spasm of back: Code(s): M62.830 - Muscle spasm of back Plan: Intrathecal pump adjustment. THE PATIENT CAME TODAY to the office FOR intrathecal pump interrogation and dose adjustment. The pump was read, the following adjustments were made: She will be able now to continue 80 micro g of fentanyl a day +45 of mcg of fentanyl on demand every 3 hours 6 times a day. Next time she is here I will increase her clonidine to the concentration of 600 micro g per mL. (7) Adjustment disorder with mixed anxiety and depressed mood: Code(s): F43.23 - Adjustment disorder with mixed anxiety and depressed mood Plan: She reports bupivacaine helps her pain as well providing numbing and tingling sensation instead of pain sensation. She reports significant pain relief during daytime but again reports unable to sleep well at night because she feels pain. The changes of the doses are as above. Explained to her if she feels that the doses are causing her any side effects my recommendations do not administer next does and come to the office urgently so we can adjust the doses of the medications. She has naloxone at home. Magnet application to arrest the function of the pump explained to the patient. This is in case she will be in the emergency room unconscious and emergency room does not now what is the cause of unconsciousness.. Next pump refill on 06/20/2023. I will adjust the dose to increase clonidine to 600 micro g per mL. I will continue with concentration fentanyl 1000 mcg and bupivacaine 40 mg per mL . Coding Level of Care Code Est Pt Level 4 (58824) Procedure Only Diagnoses Chronic pain syndrome G89.4 Opioid contract exists Z79.891 Failed back syndrome, lumbar M96.1 Spondylosis of lumbar region without myelopathy or radiculopathy M47.816 CRPS (complex regional pain syndrome) type I G90.50 Muscle spasm of back M62.830 Adjustment disorder with mixed anxiety and depressed mood F43.23
== END 2023-05-13 11:34 | disposition home or self-care (01) ==
PROVIDERS: PCP Internal Medicine; Visit Provider Anesthesiology
DX: Z45.1 Encounter for adjustment and management of infusion pump (principal); G89.4 Chronic pain syndrome; Z79.891 Long term (current) use of opiate analgesic; M96.1 Postlaminectomy syndrome, not elsewhere classified; M47.816 Spondylosis without myelopathy or radiculopathy, lumbar region; G90.50 Complex regional pain syndrome I, unspecified; M62.830 Muscle spasm of back; F43.23 Adjustment disorder with mixed anxiety and depressed mood
CPT/HCPCS: 62368; 99214

== ENCOUNTER → 2023-05-13 10:45 | Outpatient (BNVA) | payer OTHER, SELFPAY | PROVIDERS: PCP Internal Medicine; Visit Provider Anesthesiology | DX: M96.1 Postlaminectomy syndrome, not elsewhere classified (principal); M47.816 Spondylosis without myelopathy or radiculopathy, lumbar region; M62.830 Muscle spasm of back; G90.50 Complex regional pain syndrome I, unspecified; F43.23 Adjustment disorder with mixed anxiety and depressed mood; G89.4 Chronic pain syndrome; Z79.891 Long term (current) use of opiate analgesic | CPT/HCPCS: 62368; 99212 ==

== ENCOUNTER 2023-06-20 10:34 | Outpatient (AMB) | payer OTHER, SELFPAY ==
--- NOTE | 2023-06-20 10:40 | A.OFFVIS_ITS ---
Intake Vital Signs 06/20/23 11:10 Height 5 ft 3 in Weight 170 lb BMI 30.1 BP 136/84 Blood Pressure Location Lt brachial Position Sitting Respiration 18 Pulse 112 H Pulse Source Pulse Oximeter Pulse Oximetry (%) 95 Oxygen Delivery Method Room Air Intake Visit Reasons: ITDD REFILL/ LVM Intake Note: patient comes in for pain pump refill. She reports pain level of 4/10. Allergies No Known Allergies Allergy (Verified 06/20/23 11:11) [facility] Medical History (Updated 07/05/22 @ 08:02 by Cal Poole MD) Anxiety and depression Adjustment disorder with mixed anxiety and depressed mood Left foot pain Chronic pain syndrome CRPS (complex regional pain syndrome) type I Failed back syndrome, 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 Surgical History (Updated 05/11/22 @ 06:10 by Ivett Mata) History of adenoidectomy Previous section Tubal ligation status History of back surgery H/O hand surgery H/O heart surgery S/P tonsillectomy Social History Patient Tobacco Use Status: Current someday Tobacco user Tobacco use type: Cigarette Cigarettes Per Day: 3 Years Smoked: 10 Physical Exam Vital Signs: Last Vital Signs Pulse 112 H 06/20/23 11:10 Resp 18 06/20/23 11:10 BP 136/84 06/20/23 11:10 Pulse Ox 95 06/20/23 11:10 Oxygen Delivery Method Room Air 06/20/23 11:10 BMI result Body Mass Index 30.1 Assessment & Plan Assessment & Plan (1) Chronic pain syndrome: Code(s): G89.4 - Chronic pain syndrome (2) Opioid contract exists: 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 (3) Failed back syndrome, lumbar: Code(s): M96.1 - Postlaminectomy syndrome, not elsewhere classified (4) Spondylosis of lumbar region without myelopathy or radiculopathy: Code(s): M47.816 - Spondylosis without myelopathy or radiculopathy, lumbar region (5) CRPS (complex regional pain syndrome) type I: Code(s): G90.50 - Complex regional pain syndrome I, unspecified (6) Muscle spasm of back: Code(s): M62.830 - Muscle spasm of back (7) Adjustment disorder with mixed anxiety and depressed mood: Code(s): F43.23 - Adjustment disorder with mixed anxiety and depressed mood Plan: She reports bupivacaine helps her pain as well providing numbing and tingling sensation instead of pain sensation. She reports significant pain relief . The concentration of clonidine is was changed it was increased to 600 micro g per mL (8) Tachycardia: Code(s): R00.0 - Tachycardia, unspecified Plan Intrathecal pump refill. THE PATIENT CAME TODAY to the office FOR THE CHANGE OF THE MEDICATION IN her PAIN PUMP. The name and date of were verified and informed consent was obtained for the procedure. ?The pump was interrogated and the residual amount of fluid was found to be 2.3 mL. SHE WAS POSITIONED prone on the bed AND THE AREA OF THE INTRATHECAL PUMP WAS PREPPED WITH CHLORAPREP. The fenestrated drape was sterilely applied over the area of the pump. Sterile gloves were worn and of the aspiration system was assembled containing 2 in 22 gauge noncoring needle, the needle was connected to extension tubing which was connected to the 20 cc sterile syringe. The pain pump was palpated under the skin in the patient's right buttock area. The needle was inserted through the skin and the central plug of the pain pump and fluid was aspirated. The clear fluid was going into the syringe the total amount of the fluid was 2.3 mL .. After that a new batch? of medication was obtained which was containing Fentanyl in concentration 1000 micro g/ml and bupivacaine 40 mg per ml plus clonidine 600 mcg per ml. The admixture was made in 20 cc syringe prepared by [facility] compounding pharmacy. The syringe was connected to the bacterial filter, and then connected to the extension tubing. After that the medication in the syringe was slowly instilled into the pump with aspirations at 15 and 5 cc willis.? The pump was reprogrammed for the doses of Fentanyl 80 mcg per day with corresponding dose of bupivacaine and clonidine? The patient was given 6 doses of PTM 35 micrograms of fentanyl intrathecally? every 3 hours with maximum 6 activations per 24 hour. Coding Level of Care Code Procedure Only Diagnoses Chronic pain syndrome G89.4 Opioid contract exists Z79.891 Failed back syndrome, lumbar M96.1 Spondylosis of lumbar region without myelopathy or radiculopathy M47.816 CRPS (complex regional pain syndrome) type I G90.50 Muscle spasm of back M62.830 Adjustment disorder with mixed anxiety and depressed mood F43.23 Tachycardia R00.0
[2023-06-20 11:10] VITALS: BP 136/84; PULSE 112; RESP 18; O2SAT 95; BMI 30.1
== END 2023-06-20 11:04 | disposition home or self-care (01) ==
PROVIDERS: PCP Internal Medicine; Visit Provider Anesthesiology
DX: Z45.1 Encounter for adjustment and management of infusion pump (principal); G89.4 Chronic pain syndrome; R00.0 Tachycardia, unspecified; Z79.891 Long term (current) use of opiate analgesic; M96.1 Postlaminectomy syndrome, not elsewhere classified; M47.816 Spondylosis without myelopathy or radiculopathy, lumbar region; G90.50 Complex regional pain syndrome I, unspecified; M62.830 Muscle spasm of back; F43.23 Adjustment disorder with mixed anxiety and depressed mood
CPT/HCPCS: 62370

== ENCOUNTER → 2023-06-20 10:34 | Outpatient (BNVA) | payer OTHER, SELFPAY | PROVIDERS: PCP Internal Medicine; Visit Provider Anesthesiology | DX: M96.1 Postlaminectomy syndrome, not elsewhere classified (principal); M47.816 Spondylosis without myelopathy or radiculopathy, lumbar region; M62.830 Muscle spasm of back; G89.4 Chronic pain syndrome; G90.50 Complex regional pain syndrome I, unspecified; F43.23 Adjustment disorder with mixed anxiety and depressed mood; R00.0 Tachycardia, unspecified; Z79.891 Long term (current) use of opiate analgesic | CPT/HCPCS: 62370 ==

== ENCOUNTER 2023-08-08 10:33 | Outpatient (AMB) | payer OTHER, SELFPAY ==
--- NOTE | 2023-08-08 10:35 | A.OFFVIS_ITS ---
Intake Vital Signs 08/08/23 10:42 Height 5 ft 3 in Weight 161 lb 8 oz BMI 28.6 BP 120/90 H Blood Pressure Location Lt brachial Respiration 16 Pulse 106 H Pulse Source Pulse Oximeter Pulse Oximetry (%) 98 Oxygen Delivery Method Room Air Intake Visit Reasons: ITDD REFILL/CONFIRMED Allergies No Known Allergies Allergy (Verified 08/08/23 10:43) HPI HPI Comments History of Present Illness Details Celina is back in my office for the pain pump refill and adjustment see report as below.? She is suffering from postlaminectomy syndrome, she is also suffering from pain secondary to compression fractures T11.? The implant was d one on 05/11/2022.? She started to complain on pain radiating into the right lower extremity. On this is sign of for her postlaminectomy syndrome. I offered her to perform caudal epidural steroid injection with catheter more to the right. Will schedule this procedure for her soon as possible. The pain pump refill is as below. The doses or concentrations were not changed. [facility] Medical History (Updated 07/05/22 @ 08:02 by Cal Poole MD) Anxiety and depression Adjustment disorder with mixed anxiety and depressed mood Left foot pain Chronic pain syndrome CRPS (complex regional pain syndrome) type I Failed back syndrome, 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 Surgical History (Updated 05/11/22 @ 06:10 by Ivett Mata) History of adenoidectomy Previous section Tubal ligation status History of back surgery H/O hand surgery H/O heart surgery S/P tonsillectomy Social History Patient Tobacco Use Status: Current someday Tobacco user Tobacco use type: Cigarette Cigarettes Per Day: 3 Years Smoked: 10 Review of Systems Const All systems reviewed & are unremarkable except as noted in HPI and below ENT Reports Normal hearing present Neuro Reports Normal hearing present and Denies Sensory deficit (Neuro) Physical Exam Vital Signs: Last Vital Signs Pulse 106 H 08/08/23 10:42 Resp 16 08/08/23 10:42 BP 120/90 H 08/08/23 10:42 Pulse Ox 98 08/08/23 10:42 Oxygen Delivery Method Room Air 08/08/23 10:42 BMI result Body Mass Index 28.6 Const General: cooperative, comfortable and no acute distress Nutritional Appearance: average body habitus Limitations: no limitations HEENT Head: Yes normal to inspection, Yes normocephalic and Yes atraumatic Ears: hearing grossly normal bilaterally Face and sinus: Yes normal facial exam and Yes face symmetric Mouth: moist mucous membranes Eyes General: appearance normal, both eyes and all related structures Visual Syed: normal visual syed by confrontation Pupils: Equal, round and reactive pupils present EOM: EOMs intact bilaterally Neck Neck: Yes normal visual inspection, Yes no lymphadenopathy, Yes supple, No anterior neck swelling and Yes no JVD Resp Effort & Inspection: normal respiratory effort, able to speak in complete sentences, no audible wheezes, no cough, no respiratory distress and symmetric chest movement Cardio Jugular venous distension: no JVD GI Inspection: Yes normal to inspection General: Yes no CVA tenderness Back/Spine/Pelvis Back: no CVA tenderness Cervical Spine: cervical ROM normal, cervical muscular tenderness, pain with cervical ROM and No Cervical spine tenderness Thoracic/Lumbar Spine: thoracic and lumbar spine normal to inspection, Thoracic/lumbar spine scar(s), Lasegue's sign negative, straight leg raise negative bilaterally, pain with thoraco-lumbar ROM, paraspinal muscle tender ness, thoraco-lumbar ROM limited, thoraco-lumbar spasm, No thoracic spinal tenderness and No lumbar spinal tenderness Pelvis: buttock tenderness on the left Sacroiliac joints: bilaterally tender to palpation Skin General skin exam: no rashes or lesions noted Neuro Cranial nerves: Yes Equal, round and reactive pupils present and Yes Normal hearing present Cognition (Neuro): normal cognition Sensory Exam: No Sensory deficit (Neuro) Assessment & Plan Assessment & Plan (1) Chronic pain syndrome: Code(s): G89.4 - Chronic pain syndrome (2) Opioid contract exists: Code(s): 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.891 - 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 (3) Failed back syndrome, lumbar: Code(s): M96.1 - Postlaminectomy syndrome, not elsewhere classified (4) Spondylosis of lumbar region without myelopathy or radiculopathy: Code(s): M47.816 - Spondylosis without myelopathy or radiculopathy, lumbar region (5) CRPS (complex regional pain syndrome) type I: Code(s): G90.50 - Complex regional pain syndrome I, unspecified (6) Muscle spasm of back: Code(s): M62.830 - Muscle spasm of back (7) Adjustment disorder with mixed anxiety and depressed mood: Code(s): F43.23 - Adjustment disorder with mixed anxiety and depressed mood Plan: I will schedule her for caudal epidural steroid injection with catheter more to the right. See as above. Plan Intrathecal pump refill. THE PATIENT CAME TODAY to the office FOR THE CHANGE OF THE MEDICATION IN her PAIN PUMP. The name and date of were verified and informed consent was obtained for the procedure. ?The pump was interrogated and the residual amount of fluid was found to be 2.1 mL. SHE WAS POSITIONED prone on the bed AND THE AREA OF THE INTRATHECAL PUMP WAS PREPPED WITH CHLORAPREP. The fenestrated drape was sterilely applied over the area of the pump. Sterile gloves were worn and of the aspiration system was assembled containing 2 in 22 gauge noncoring needle, the needle was connected to extension tubing which was connected to the 20 cc sterile syringe. The pain pump was palpated under the skin in the patient's right buttock area. The needle was inserted through the skin and the central plug of the pain pump and fluid was aspirated. The clear fluid was going into the syringe the total amount of the fluid was 3.0 mL .. After that a new batch? of medication was obtained which was containing Fentanyl in concentration 1000 micro g/ml and bupivacaine 40 mg per ml plus clonidine 600 mcg per ml. The admixture was made in 20 cc syringe prepared by [facility] compounding pharmacy. The syringe was connected to the bacterial filter, and then connected to the extension tubing. After that the medication in the syringe was slowly instilled into the pump with aspirations at 15 and 5 cc willis.? The pump was reprogrammed for the doses of Fentanyl 80 mcg per day with corresponding dose of bupivacaine and clonidine? The patient was given 6 doses of PTM 35 micrograms of fentanyl intrathecally? every 3 hours with maximum 6 activations per 24 hour. Coding Level of Care Code Est Pt Level 3 (11509) Procedure Only Diagnoses Chronic pain syndrome G89.4 Opioid contract exists Z79.891 Failed back syndrome, lumbar M96.1 Spondylosis of lumbar region without myelopathy or radiculopathy M47.816 CRPS (complex regional pain syndrome) type I G90.50 Muscle spasm of back M62.830 Adjustment disorder with mixed anxiety and depressed mood F43.23
[2023-08-08 10:42] VITALS: BP 120/90; PULSE 106; RESP 16; O2SAT 98; BMI 28.6
== END 2023-08-08 11:08 | disposition home or self-care (01) ==
PROVIDERS: PCP Internal Medicine; Visit Provider Anesthesiology
DX: G89.4 Chronic pain syndrome (principal); Z79.891 Long term (current) use of opiate analgesic; M96.1 Postlaminectomy syndrome, not elsewhere classified; M47.816 Spondylosis without myelopathy or radiculopathy, lumbar region; G90.50 Complex regional pain syndrome I, unspecified; M62.830 Muscle spasm of back; F43.23 Adjustment disorder with mixed anxiety and depressed mood; Z45.1 Encounter for adjustment and management of infusion pump
CPT/HCPCS: 62370; 99213

== ENCOUNTER → 2023-08-08 10:33 | Outpatient (BNVA) | payer OTHER, SELFPAY | PROVIDERS: PCP Internal Medicine; Visit Provider Anesthesiology | DX: Z45.1 Encounter for adjustment and management of infusion pump (principal); M96.1 Postlaminectomy syndrome, not elsewhere classified; M47.816 Spondylosis without myelopathy or radiculopathy, lumbar region; M62.830 Muscle spasm of back; G90.50 Complex regional pain syndrome I, unspecified; F43.23 Adjustment disorder with mixed anxiety and depressed mood; G89.4 Chronic pain syndrome; Z79.891 Long term (current) use of opiate analgesic | CPT/HCPCS: 62370; 99212 ==

== ENCOUNTER 2023-09-17 06:19 | Outpatient (REF) | payer OTHER, SELFPAY ==
--- NOTE | ~2023-09-17 | FL_ITS ---
CLINICAL INDICATION: Post laminectomy syndrome. FINDINGS: Technical assistance and equipment were provided by the Department of Radiology during intraoperative fluoroscopy. Two, limited fluoroscopic spot images are submitted. A radiologist was not present during the procedure. The first of these images is uninterpretable. The second appears to demonstrate the mid lower pelvis. Lower lumbar/upper sacral hardware is partially imaged. The tip of a presumed needle projects over the lower sacrum. Contrast is present; it is difficult to ascertain the location of the contrast based on this limited image alone. The images are available for review on PACS. TOTAL FLUOROSCOPY TIME: 0.1 minute. DOSE AREA PRODUCT: 0.03 Gy-cm2 (rubio-centimeter squared) FL/FL guidance in treatment room IMPRESSION: Technical assistance and equipment provided by the Department of Radiology during intraoperative fluoroscopy, as above. Please see operative report for further details.
== END 2023-09-17 06:20 | disposition home or self-care (01) ==
LOC: CF 06:19
PROVIDERS: Visit Provider Anesthesiology
DX: M96.1 Postlaminectomy syndrome, not elsewhere classified (principal); G89.4 Chronic pain syndrome; M47.816 Spondylosis without myelopathy or radiculopathy, lumbar region; G90.50 Complex regional pain syndrome I, unspecified; M62.830 Muscle spasm of back; Z79.891 Long term (current) use of opiate analgesic
CPT/HCPCS: 62323; J3301; Q9967

== ENCOUNTER 2023-09-17 10:54 | Outpatient (AMB) | payer OTHER, SELFPAY ==
--- OUTSIDE RECORDS SUMMARY | 2023-09-17 10:57 | XMS_ITS | Continuity of Care Document ---
Author Name Unknown Organization [facility] Address [address] [place] [id number]- Care Team Providers Care Calciminer Name Role Phone Bebeto MCKEON, Tigre Campa Primary Care Physician [phone] Encounter [facility] Date(s): 02/14/23 - 03/16/23 [facility] [address] [place] [id number] [place] Allergies, Adverse Reactions, Alerts No Known Allergies Immunizations Given and Recorded Vaccine Date Status Refusal Reason tetanus/diphtheria/pertussis, acel(Tdap) 03/17/20 Given influenza virus vaccine, inactivated 09/06/10 Give n pneumococcal 23-valent vaccine 04/27/10 Given Medications BuPROPion (Eqv-Wellbutrin SR) 150 mg/12 hours oral tablet, extended release 0 Refills, Maintenance, 12/13/20 8:00:00 EDT, Partial fill upon patient request if the prescriptionis for a schedule II opioid drug. Start Date: 12/13/20 Status: Ordered Ditropan = 5 mg, By Mouth, Daily, 0 Refills, Maintenance, 12/13/20 8:06:00 EDT, Partial fill upon patient request if the prescription is for a schedule II opioid drug. Start Date: 12/13/20 Status: Ordered Famotidine = 40 mg, 0 Refills, Maintenance, 04/10/21 9:00:00 EDT, Partial fill upon patient request if the prescription is for a schedule II opioid drug. Start Date: 04/10/21 Status: Ordered fexofenadine 180 mg oral tablet 1 tablet = 180 mg, By Mouth, Daily, # 30 tablet, 0 Refills, Maintenance, 12/13/20 8:00:00 EDT, Tablet, Partial fill upon patient request if the prescription is for a schedule II opioid drug. Start Date: 12/13/20 Status: Ordered lidocaine 5% topical film 1 patch, Topically, Daily, remove patches after 12 hours, # 30 patch, 0 Refills, Maintenance, 12/29/22 17:17:00 EDT, [id number], Partial fill upon patient request if the prescription is for a schedule II opioid drug., 1 patch Topically... Start Date: 12/29/22 Stop Date: 01/28/23 Status: Ordered Omeprazole = 20 mg, By Mouth, Daily, 0 Refills, Maintenance, 04/10/21 8:59:00 EDT, Partial fill upon patient request if the prescription is for a schedule II opioid drug. Start Date: 04/10/21 Status: Ordered Pregabalin = 200 mg, By Mouth, 2 times a day, 0 Refills, Maintenance, 12/25/22 12:45:00 EDT, Partial fill uponpatient request if the prescription is for a schedule II opioid drug. Start Date: 12/25/22 Status: Ordered QUEtiapine 400 mg oral tablet 2 tablets, Daily at bedtime, 0 Refills, Maintenance, 12/13/20 8:01:00 EDT, Partial fill upon patient request if the prescription is for a schedule II opioid drug. Start Date: 12/13/20 Status: Ordered sertraline 50 mg oral tablet 1.5 tablet = 75 mg, By Mouth, Daily, 0 Refills, Maintenance, 06/19/19 9:52:17 EDT Start Date: 06/19/19 Status: Ordered traZODone 100 mg oral tablet 2 capsules, Daily at bedtime, Refills 0, Maintenance, 12/13/20 8:01:00 EDT, Partial fill upon patient request if the prescription is for a schedule II opioid drug. Start Date: 12/13/20 Status: Ordered Problem List Condition Confirmation Course Effective Dates Status H ealth Status Informant Anxiety Confirmed Active Body mass index 25-29 - overweight Confirmed Active Change of medication : gabapentin 1 Confirmed Active Change of medication: amitriptyline, catalyn dietary supp 2 Confirmed Active Chronic pain syndrome Confirmed Active Decompression of median nerve at wrist: right 3 Confirmed 09/30/08 Active Depression Confirmed Active Drug interaction 4 Confirmed Active Drug-induced constipation Confirmed Active Drug-induced nausea and vomiting Confirmed Active Failed back syndrome Confirmed Active Knee pain Confirmed Active Lumbar and lumbosacral fusion by posterior technique 5 Confirmed 09/05/10 Active Lumbar microdiscectomy 6 Confirmed 05/18/09 Active Lumbar microdiscectomy 7 Confirmed 07/12/09 Active Lumbar microdiscectomy 8 Confirmed 04/26/10 Active Not getting enough sleep Confirmed Active Obese class I Confirmed Active Other Pain Disorders Related to Psychological Factors Confirmed Active Sacroiliac joint pain Confirmed Active Shortness of breath on stair climbing Confirmed Active Therapy outcome measure 9 Confirmed Active 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 2Eliminated catalyn 10/30/11 and amitriptyline 11/05/11 3Right carpal tunnel release for carpal tunnel syndrome by Manuel Martinez M.D. at [facility]. 4H/o tramadol treatment; antidepressant and opioid co-treatment(current); h/o total CK >80<190. 51. Translumbar interbody fusion L5-S1; 2. L5-S1 pedicle screws fixation; 3. Posterolateral arthrodesis L5-S1; 4. Intraoperative fluoroscopy ; 5. Harvesting of autologous bone graft, same incision for1. Discogenic pain L5-S1 & 2. Recurrent disc herniation L5-S1 by Patric Garcia M.D. at [facility] 6Microlumbar discectomy L4-L5, left for herniated disc L4-L5, left by Patric Garcia M.D. at [facility]. 7Microlumbar discectomy L4-L5, left for recurrent disc herniation L4-L5, left by Patric Garcia M.D. at [facility] 81. Microlumbar discectomy L4-L5, left & 2. Microlumbar discectomy L5-S1, left for recurrent disc herniation L4-L5, left herniated disc L5-S1, left.. Patric Garcia M.D. at [facility] 9initial Oswestry facundo 2.0 on 08/24/11: 68% ( crippled ); initial [place] Back Pain Disability scale on 08/24/11: 76 1019 Social History Social History Type Response Tobacco Use: 4 or less cigar ettes(less than 1/4 pack)/day in last 30 days. Sex Patient Care team information Care Team Personnel Name: Ketty Beach Position: [facility] Outreach Member Role: [employer] Consulting Physician Name: Khushboo Mcdaniel RN Position: [facility] RN Member Role: Primary Care Nurse Name: Tigre Tate MD Position: S Physician - Primary Care Member Role: PCP Address: Address: [address] [place] [address], [address] [place] [address]- Care Team Related Persons Name: JUNIOR BENAVIDES Address: home [address] [place] [id number] Name: ECTOR BENAVIDES Address: [place] [address]
[2023-09-17 11:11] VITALS: BP 102/64; BP 106/58; PULSE 83; PULSE 92; RESP 18; O2SAT 98; O2SAT 99; BMI 28.6
--- NOTE | 2023-09-17 11:11 | MHC.OFFVIS ---
Intake Vital Signs 09/17/23 11:11 09/17/23 11:11 Height 5 ft 3 in 5 ft 3 in Weight 161 lb 8 oz 161 lb 8 oz BMI 28.6 28.6 BP 106/58 L 102/64 Blood Pressure Location Lt brachial Lt brachial Position Sitting Sitting Respiration 18 18 Pulse 83 92 Pulse Source Pulse Oximeter Pulse Oximeter Pulse Oximetry (%) 99 98 Oxygen Delivery Method Room Air Room Air Comment pre-op post-op Intake Visit Reasons: CAUDAL JUANA WITH CATHETER MORE TO THE RIGHT Allergies No Known Allergies Allergy (Verified 09/17/23 12:38) [facility] Medical History (Updated 07/05/22 @ 08:02 by Cal Poole MD) Anxiety and depression Adjustment disorder with mixed anxiety and depressed mood Left foot pain Chronic pain syndrome CRPS (complex regional pain syndrome) type I Failed back syndrome, 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 Surgical History (Updated 05/11/22 @ 06:10 by Ivett Mata) History of adenoidectomy Previous section Tubal ligation status History of back surgery H/O hand surgery H/O heart surgery S/P tonsillectomy Social History Patient Tobacco Use Status: Current someday Tobacco user Tobacco use type: Cigarette Cigarettes Per Day: 3 Years Smoked: 10 Physical Exam Vital Signs: Last Vital Signs Pulse 92 09/17/23 11:11 Resp 18 09/17/23 11:11 BP 102/64 09/17/23 11:11 Pulse Ox 98 09/17/23 11:11 Oxygen Delivery Method Room Air 09/17/23 11:11 BMI result Body Mass Index 28.6 Assessment & Plan Assessment & Plan (1) Chronic pain syndrome: Code(s): G89.4 - Chronic pain syndrome (2) Opioid contract exists: Code(s): Z79.891 - custodial (current) use of opiate analgesic (3) Failed back syndrome, lumbar: Code(s): M96.1 - Postlaminectomy syndrome, not elsewhere classified (4) Spondylosis of lumbar region without myelopathy or radiculopathy: Code(s): M47.816 - Spondylosis without myelopathy or radiculopathy, lumbar region (5) CRPS (complex regional pain syndrome) type I: Code(s): G90.50 - Complex regional pain syndrome I, unspecified (6) Muscle spasm of back: Code(s): M62.830 - Muscle spasm of back (7) Adjustment disorder with mixed anxiety and depressed mood: Code(s): F43.23 - Adjustment disorder with mixed anxiety and depressed mood Plan: I will schedule her for caudal epidural steroid injection with catheter more to the right. See as above. Plan Caudal JUANA with catheter. After obtaining informed consent the patient was taken to the operating room where she was position on operating table prone.? ?Time-out was performed delineating correct site, side, the nature of the procedure, patient's allergy need for antibiotic therapy.? All operating room staff was participating in OR time-out procedure.? Her lower back, bilateral buttocks and intergluteal cleft were thoroughly prepped with ChloraPrep and draped with sterile fenestrated clear drape.? Fluoroscopy C-arm was brought over the operating field and picture of midline sacral bone superimposing on symphysis pubis was obtained on the C-arm screen.? Skin wheal was raised approximately 2 cm below the level of the sacral hiatus using lidocaine 1% 2-3 cc and after that 10 cm 18 gauge Touhy needle was inserted through the skin and positioned in strict midline fashion directing to the opening of the sacral hiatus midline. After that the position of the C-arm was turned into the lateral.? The position of sacral hiatus was noted on the screen.? After that needle was advanced through the skin and advanced the opening of sacral hiatus on intermittent anterior posterior and lateral views.? When needle entered the sacral canal injection of the contrast performed into the needle demonstrating epidural spread of the contrast.? After that 22 gauge epidural catheter was inserted through the needle and advanced into the needle and into the epidural space until resistance was felt , it was at 23 cm.? After that the position of the C-arm was turned into anterior posterior and injection of the contrast was performed into the C-arm.? The contrast was spread in the epidural fashion mostly on the right at the location of L5-S1 epidural space and spreading down into caudal epidural space.? After that? 25 cc of normal saline was injected into the catheter, following this? 4 cc of preservative-free lidocaine 1% mixed with Kenalog 40 mg was injected into the catheter.? Upon completion of the injections the needle was removed and sterile dressing with bacitracin was applied.? The patient tolerated procedure fairly although complained on severe pain on injection of saline. Orders: Orders FL guidance in treatment room 09/17/23 M96.1 - Postlaminectomy syndrome, not elsewhere classified Coding Level of Care Code Procedure Only Diagnoses Chronic pain syndrome G89.4 Opioid contract exists Z79.891 Failed back syndrome, lumbar M96.1 Spondylosis of lumbar region without myelopathy or radiculopathy M47.816 CRPS (complex regional pain syndrome) type I G90.50 Muscle spasm of back M62.830 Adjustment disorder with mixed anxiety and depressed mood F43.23
== END 2023-09-17 11:45 | disposition home or self-care (01) ==
LOC: HO.PMCPRC 10:55
PROVIDERS: PCP Internal Medicine; Visit Provider Anesthesiology
DX: M96.1 Postlaminectomy syndrome, not elsewhere classified (principal)
CPT/HCPCS: 62323

== ENCOUNTER 2023-09-26 10:39 | Outpatient (AMB) | payer OTHER, SELFPAY ==
[2023-09-26 10:56] VITALS: BP 117/65; PULSE 103; RESP 16; O2SAT 96; BMI 28.4
--- NOTE | 2023-09-26 10:56 | MHC.OFFVIS ---
Intake Vital Signs 09/26/23 10:56 Height 5 ft 3 in Weight 160 lb 4 oz BMI 28.4 BP 117/65 Blood Pressure Location Lt brachial Position Sitting Respiration 16 Pulse 103 H Pulse Source Pulse Oximeter Pulse Oximetry (%) 96 Oxygen Delivery Method Room Air Intake Visit Reasons: ITDD REFILL/confirmed Allergies No Known Allergies Allergy (Verified 09/26/23 10:56) [facility] Medical History (Updated 07/05/22 @ 08:02 by Cal Poole MD) Anxiety and depression Adjustment disorder with mixed anxiety and depressed mood Left foot pain Chronic pain syndrome CRPS (complex regional pain syndrome) type I Failed back syndrome, 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 Surgical History (Updated 05/11/22 @ 06:10 by Ivett Mata) History of adenoidectomy Previous section Tubal ligation status History of back surgery H/O hand surgery H/O heart surgery S/P tonsillectomy Social History Patient Tobacco Use Status: Current someday Tobacco user Tobacco use type: Cigarette Cigarettes Per Day: 3 Years Smoked: 10 Physical Exam Vital Signs: Last Vital Signs Pulse 103 H 09/26/23 10:56 Resp 16 09/26/23 10:56 BP 117/65 09/26/23 10:56 Pulse Ox 96 09/26/23 10:56 Oxygen Delivery Method Room Air 09/26/23 10:56 BMI result Body Mass Index 28.4 Assessment & Plan Assessment & Plan (1) Chronic pain syndrome: Code(s): G89.4 - Chronic pain syndrome (2) Opioid contract exists: Code(s): Z79.891 - terminal carman (current) use of opiate analgesic (3) Failed back syndrome, lumbar: Code(s): M96.1 - Postlaminectomy syndrome, not elsewhere classified (4) Spondylosis of lumbar region without myelopathy or radiculopathy: Code(s): M47.816 - Spondylosis without myelopathy or radiculopathy, lumbar region (5) CRPS (complex regional pain syndrome) type I: Code(s): G90.50 - Complex regional pain syndrome I, unspecified (6) Muscle spasm of back: Code(s): M62.830 - Muscle spasm of back (7) Adjustment disorder with mixed anxiety and depressed mood: Code(s): F43.23 - Adjustment disorder with mixed anxiety and depressed mood (8) Tachycardia: Code(s): R00.0 - Tachycardia, unspecified Plan Intrathecal pump refill. THE PATIENT CAME TODAY to the office FOR THE CHANGE OF THE MEDICATION IN her PAIN PUMP. The name and date of were verified and informed consent was obtained for the procedure. ?The pump was interrogated and the residual amount of fluid was found to be 2.7 mL. SHE WAS POSITIONED prone on the bed AND THE AREA OF THE INTRATHECAL PUMP WAS PREPPED WITH CHLORAPREP. The fenestrated drape was sterilely applied over the area of the pump. Sterile gloves were worn and of the aspiration system was assembled containing 2 in 22 gauge noncoring needle, the needle was connected to extension tubing which was connected to the 20 cc sterile syringe. The pain pump was palpated under the skin in the patient's right buttock area. The needle was inserted through the skin and the central plug of the pain pump and fluid was aspirated. The clear fluid was going into the syringe the total amount of the fluid was 3.0 mL .. After that a new batch? of medication was obtained which was containing Fentanyl in concentration 1000 micro g/ml and bupivacaine 40 mg per ml plus clonidine 600 mcg per ml. The admixture was made in 20 cc syringe prepared by [facility] compounding pharmacy. The syringe was connected to the bacterial filter, and then connected to the extension tubing. After that the medication in the syringe was slowly instilled into the pump with aspirations at 15 and 5 cc willis.? The pump was reprogrammed for the doses of Fentanyl 80 mcg per day with corresponding dose of bupivacaine and clonidine? The patient was given 6 doses of PTM 35 micrograms of fentanyl intrathecally? every 3 hours with maximum 6 activations per 24 hour. Coding Level of Care Code Procedure Only Diagnoses Chronic pain syndrome G89.4 Opioid contract exists Z79.891 Failed back syndrome, lumbar M96.1 Spondylosis of lumbar region without myelopathy or radiculopathy M47.816 CRPS (complex regional pain syndrome) type I G90.50 Muscle spasm of back M62.830 Adjustment disorder with mixed anxiety and depressed mood F43.23 Tachycardia R00.0
== END 2023-09-26 11:06 | disposition home or self-care (01) ==
PROVIDERS: PCP Internal Medicine; Visit Provider Anesthesiology
DX: G89.4 Chronic pain syndrome (principal); Z79.891 Long term (current) use of opiate analgesic; M96.1 Postlaminectomy syndrome, not elsewhere classified; M47.816 Spondylosis without myelopathy or radiculopathy, lumbar region; G90.50 Complex regional pain syndrome I, unspecified; M62.830 Muscle spasm of back; F43.23 Adjustment disorder with mixed anxiety and depressed mood; R00.0 Tachycardia, unspecified
CPT/HCPCS: 62370

== ENCOUNTER → 2023-09-26 10:39 | Outpatient (BNVA) | payer OTHER, SELFPAY | PROVIDERS: PCP Internal Medicine; Visit Provider Anesthesiology | DX: M96.1 Postlaminectomy syndrome, not elsewhere classified (principal); M47.816 Spondylosis without myelopathy or radiculopathy, lumbar region; M62.830 Muscle spasm of back; G90.50 Complex regional pain syndrome I, unspecified; F43.23 Adjustment disorder with mixed anxiety and depressed mood; G89.4 Chronic pain syndrome; Z79.891 Long term (current) use of opiate analgesic | CPT/HCPCS: 62370 ==

== ENCOUNTER 2023-10-14 11:43 | Outpatient (AMB) | payer OTHER, SELFPAY ==
--- NOTE | 2023-10-14 11:44 | A.OFFVIS_ITS ---
Intake Intake Visit Reasons: CAUDAL JUANA/09/17/23 - LVM Intake Note: Patient comes in for post-op appointment. Reports pain 9/10. Allergies No Known Allergies Allergy (Verified 10/14/23 11:59) HPI HPI Comments History of Present Illness Details Celina is back in my office to discuss the results of the caudal epi dural steroid injection with catheter. She is suffering from postlaminectomy syndrome. She is currently on pain pump. She reports that caudal epidural steroid injection resulted in couple of weeks of pain relief only. This is not enough for me to consider caudal epidural steroid injection for her as chronic assistance in her pain treatment. Today attention was attracted to the fact that her pain is mostly on the right side and radiates down to the right leg. I also asked her to perform Malik test and Gaenslen test and both of them were positive on the right. The patient also reports tenderness on palpation in projection of the right sacroiliac joint. However she told me that in the past she received sacroiliac joint injection with no results. I would like to send her for CT scan of the pelvis to evaluate the pelvic bones and sacroiliac joints. She will come next time to my office to refill her intrathecal pain pump. Her pain is very stable and she reports today pain 4/10. She is suffering from postlaminectomy syndrome, she is also suffering from pain secondary to compression fractures T11.? The implant was done on 05/11/2022.? 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 Surgical History (Updated 05/11/22 @ 06:10 by Ivett Mata) History of adenoidectomy Previous section Tubal ligation status History of back surgery H/O hand surgery H/O heart surgery S/P tonsillectomy Social History Patient Tobacco Use Status: Current someday Tobacco user Tobacco use type: Cigarette Cigarettes Per Day: 3 Years Smoked: 10 Review of Systems Const All systems reviewed & are unremarkable except as noted in HPI and below ENT Reports Normal hearing present Neuro Reports Normal hearing present and Denies Sensory deficit (Neuro) Physical Exam Const General: cooperative, comfortable and no acute distress Nutritional Appearance: average body habitus Limitations: no limitations HEENT Head: Yes normal to inspection, Yes normocephalic and Yes atraumatic Ears: hearing grossly normal bilaterally Face and sinus: Yes normal facial exam and Yes face symmetric Mouth: moist mucous membranes Eyes General: appearance normal, both eyes and all related structures Visual Syed: normal visual syed by confrontation Pupils: Equal, round and reactive pupils present EOM: EOMs intact bilaterally Neck Neck: Yes normal visual inspection, Yes no lymphadenopathy, Yes supple, No anterior neck swelling and Yes no JVD Resp Effort & Inspection: normal respiratory effort, able to speak in complete sentences, no audible wheezes, no cough, no respiratory distress and symmetric chest movement Cardio Jugular venous distension: no JVD GI Inspection: Yes normal to inspection General: Yes no CVA tenderness Back/Spine/Pelvis Other: Malik test and Gaenslen test are positive on the right. Fourteen finger test is positive on the right. Back: no CVA tenderness Cervical Spine: cervical ROM normal, cervical muscular tenderness, pain with cervical ROM and No Cervical spine tenderness Thoracic/Lumbar Spine: thoracic and lumbar spine normal to inspection, Thoracic/lumbar spine scar(s), Lasegue's sign negative, straight leg raise negative bilaterally, pain with thoraco-lumbar ROM, paraspinal muscle tenderness, thoraco-lumbar ROM limited, thoraco-lumbar spasm, No thoracic spinal tenderness and No lumbar spinal tenderness Pelvis: buttock tenderness on the left Sacroiliac joints: bilaterally tender to palpation Skin General skin exam: no rashes or lesions noted Neuro Cranial nerves: Yes Equal, round and reactive pupils present and Yes Normal hearing present Cognition (Neuro): normal cognition Sensory Exam: No Sensory deficit (Neuro) Assessment & Plan Assessment & Plan (1) Failed back syndrome, lumbar: Code(s): M96.1 - Postlaminectomy syndrome, not elsewhere classified (2) Chronic pain syndrome: Code(s): G89.4 - Chronic pain syndrome (3) Opioid contract exists: Code(s): Z79.891 - long term care phlebotomist (current) use of opiate analgesic (4) Spondylosis of lumbar region without myelopathy or radiculopathy: Code(s): M47.816 - Spondylosis without myelopathy or radiculopathy, lumbar region (5) CRPS (complex regional pain syndrome) type I: Code(s): G90.50 - Complex regional pain syndrome I, unspecified (6) Muscle spasm of back: Code(s): M62.830 - Muscle spasm of back (7) Adjustment disorder with mixed anxiety and depressed mood: Code(s): F43.23 - Adjustment disorder with mixed anxiety and depressed mood Plan Next appointment is with the pump refill. I will send her for CT bony pelvis to evaluate sacroiliac joints. There maybe a big artifact from her pump. Orders: Orders CT bony pelvis Today M46.1 - Sacroiliitis, not elsewhere classified, M96.1 - Postlaminectomy syndrome, not elsewhere classified Coding Level of Care Code Est Pt Level 3 (68125) Diagnoses Failed back syndrome, lumbar M96.1 Chronic pain syndrome G89.4 Opioid contract exists Z79.891 Spondylosis of lumbar region without myelopathy or radiculopathy M47.816 CRPS (complex regional pain syndrome) type I G90.50 Muscle spasm of back M62.830 Adjustment disorder with mixed anxiety and depressed mood F43.23
== END 2023-10-14 11:54 | disposition home or self-care (01) ==
PROVIDERS: PCP Internal Medicine; Visit Provider Anesthesiology
DX: M96.1 Postlaminectomy syndrome, not elsewhere classified (principal); G89.4 Chronic pain syndrome; Z79.891 Long term (current) use of opiate analgesic; M47.816 Spondylosis without myelopathy or radiculopathy, lumbar region; G90.50 Complex regional pain syndrome I, unspecified; M62.830 Muscle spasm of back; F43.23 Adjustment disorder with mixed anxiety and depressed mood
CPT/HCPCS: 99213

== ENCOUNTER → 2023-10-14 11:43 | Outpatient (BNVA) | payer OTHER, SELFPAY | PROVIDERS: PCP Internal Medicine; Visit Provider Anesthesiology | DX: M96.1 Postlaminectomy syndrome, not elsewhere classified (principal); M47.816 Spondylosis without myelopathy or radiculopathy, lumbar region; M62.830 Muscle spasm of back; G90.50 Complex regional pain syndrome I, unspecified; F43.23 Adjustment disorder with mixed anxiety and depressed mood; G89.4 Chronic pain syndrome; Z79.891 Long term (current) use of opiate analgesic | CPT/HCPCS: 99212 ==

== ENCOUNTER 2023-11-14 11:34 | Outpatient (AMB) | payer OTHER, SELFPAY ==
[2023-11-14 12:22] VITALS: BP 104/68; PULSE 88; RESP 14; O2SAT 94; BMI 28.7
--- NOTE | 2023-11-14 12:22 | MHC.OFFVIS ---
Intake Vital Signs 11/14/23 12:22 Height 5 ft 3 in Weight 162 lb BMI 28.7 BP 104/68 Blood Pressure Location Lt brachial Position Sitting Respiration 14 Pulse 88 Pulse Source Pulse Oximeter Pulse Oximetry (%) 94 Oxygen Delivery Method Room Air Intake Visit Reasons: ITDD Refill Intake Note: Patient comes in for intrathecal medication refill. Reports pain 7/10. Allergies No Known Allergies Allergy (Verified 11/14/23 12:24) HPI HPI Comments History of Present Illness Details Celina is back in my office to discuss the results of the caudal epidural steroid injection with catheter. She is suffering from postlaminectomy syndrome. She is currently on pain pump. She is here today to refill her pain pump. The refill is as below. I tried caudal epidural steroid injection resulted in couple of weeks of pain relief only.Her pain is mostly on the right side and radiates down to the right leg. I also asked her to perform Malik test and Gaenslen test and both of them were positive on the right. The patient also reports tenderness on palpation in projection of the right sacroiliac joint. However she told me that in the past she received sacroiliac joint injection with no results. I would like to send her for CT scan of the pelvis to evaluate the pelvic bones and sacroiliac joints. She will come next time to my office to refill her intrathecal pain pump. Her pain is very stable and she reports today pain 4/10. She is suffering from postlaminectomy syndrome, she is also suffering from pain secondary to compression fractures T11.? The implant was done on 05/11/2022.? [facility] Medical History (Updated 10/14/23 @ 12:02 by Cal Poole MD) Anxiety and depression Adjustment disorder with mixed anxiety and depressed mood Left foot pain Chronic pain syndrome CRPS (complex regional pain syndrome) type I Failed back syndrome, 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 Surgical History (Updated 05/11/22 @ 06:10 by Ivett Mata) History of adenoidectomy Previous section Tubal ligation status History of back surgery H/O hand surgery H/O heart surgery S/P tonsillectomy Social History Patient Tobacco Use Status: Current someday Tobacco user Tobacco use type: Cigarette Cigarettes Per Day: 3 Years Smoked: 10 Review of Systems Const All systems reviewed & are unremarkable except as noted in HPI and below ENT Reports Normal hearing present Neuro Reports Normal hearing present and Denies Sensory deficit (Neuro) Physical Exam Vital Signs: Last Vital Signs Pulse 88 11/14/23 12:22 Resp 14 11/14/23 12:22 BP 104/68 11/14/23 12:22 Pulse Ox 94 11/14/23 12:22 Oxygen Delivery Method Room Air 11/14/23 12:22 BMI result Body Mass Index 28.7 Const General: cooperative, comfortable and no acute distress Nutritional Appearance: average body habitus Limitations: no limitations HEENT Head: Yes normal to inspection, Yes normocephalic and Yes atraumatic Ears: hearing grossly normal bilaterally Face and sinus: Yes normal facial exam and Yes face symmetric Mouth: moist mucous membranes Eyes General: appearance normal, both eyes and all related structures Visual Syed: normal visual syed by confrontation Pupils: Equal, round and reactive pupils present EOM: EOMs intact bilaterally Neck Neck: Yes normal visual inspection, Yes no lymphadenopathy, Yes supple, No anterior neck swelling and Yes no JVD Resp Effort & Inspection: normal respiratory effort, able to speak in complete sentences, no audible wheezes, no cough, no respiratory distress and symmetric chest movement Cardio Jugular venous distension: no JVD GI Inspection: Yes normal to inspection General: Yes no CVA tenderness Back/Spine/Pelvis Other: Malik test and Gaenslen test are positive on the right. Fourteen finger test is positive on the right. Back: no CVA tenderness Cervical Spine: cervical ROM normal, cervical muscular tenderness, pain with cervical ROM and No Cervical spine tenderness Thoracic/Lumbar Spine: thoracic and lumbar spine normal to inspection, Thoracic/lumbar spine scar(s), Lasegue's sign negative, straight leg raise negative bilaterally, pain with thoraco-lumbar ROM, paraspinal muscle tenderness, thoraco-lumbar ROM limited, thoraco-lumbar spasm, No thoracic spinal tenderness and No lumbar spinal tenderness Pelvis: buttock tenderness on the left Sacroiliac joints: bilaterally tender to palpation Skin General skin exam: no rashes or lesions noted Neuro Cranial nerves: Yes Equal, round and reactive pupils present and Yes Normal hearing present Cognition (Neuro): normal cognition Sensory Exam: No Sensory deficit (Neuro) Assessment & Plan Assessment & Plan (1) Chronic pain syndrome: Code(s): G89.4 - Chronic pain syndrome (2) Failed back syndrome, lumbar: Code(s): M96.1 - Postlaminectomy syndrome, not elsewhere classified (3) Spondylosis of lumbar region without myelopathy or radiculopathy: Code(s): M47.816 - Spondylosis without myelopathy or radiculopathy, lumbar region (4) CRPS (complex regional pain syndrome) type I: Code(s): G90.50 - Complex regional pain syndrome I, unspecified (5) Muscle spasm of back: Code(s): M62.830 - Muscle spasm of back (6) Adjustment disorder with mixed anxiety and depressed mood: Code(s): F43.23 - Adjustment disorder with mixed anxiety and depressed mood (7) Tachycardia: Code(s): R00.0 - Tachycardia, unspecified Plan Intrathecal pump refill. THE PATIENT CAME TODAY to the office FOR THE CHANGE OF THE MEDICATION IN her PAIN PUMP. The name and date of were verified and informed consent was obtained for the procedure. ?The pump was interrogated and the residual amount of fluid was found to be 2.1 mL. SHE WAS POSITIONED prone on the bed AND THE AREA OF THE INTRATHECAL PUMP WAS PREPPED WITH CHLORAPREP. The fenestrated drape was sterilely applied over the area of the pump. Sterile gloves were worn and of the aspiration system was assembled containing 2 in 22 gauge noncoring needle, the needle was connected to extension tubing which was connected to the 20 cc sterile syringe. The pain pump was palpated under the skin in the patient's right buttock area. The needle was inserted through the skin and the central plug of the pain pump and fluid was aspirated. The clear fluid was going into the syringe the total amount of the fluid was 2.9 mL .. After that a new batch? of medication was obtained which was containing Fentanyl in concentration 1000 micro g/ml and bupivacaine 40 mg per ml plus clonidine 600 mcg per ml. The admixture was made in 20 cc syringe prepared by [facility] compounding pharmacy. The syringe was connected to the bacterial filter, and then connected to the extension tubing. After that the medication in the syringe was slowly instilled into the pump with aspirations at 15 and 5 cc willis.? The pump was reprogrammed for the doses of Fentanyl 80 mcg per day with corresponding dose of bupivacaine and clonidine? The patient was given 6 doses of PTM 35 micrograms of fentanyl intrathecally? every 3 hours with maximum 6 activations per 24 hour. Coding Level of Care Code Est Pt Level 3 (85767) Procedure Only Diagnoses Chronic pain syndrome G89.4 Failed back syndrome, lumbar M96.1 Spondylosis of lumbar region without myelopathy or radiculopathy M47.816 CRPS (complex regional pain syndrome) type I G90.50 Muscle spasm of back M62.830 Adjustment disorder with mixed anxiety and depressed mood F43.23 Tachycardia R00.0
== END 2023-11-14 12:11 | disposition home or self-care (01) ==
PROVIDERS: PCP Internal Medicine; Visit Provider Anesthesiology
DX: G89.4 Chronic pain syndrome (principal); M96.1 Postlaminectomy syndrome, not elsewhere classified; M47.816 Spondylosis without myelopathy or radiculopathy, lumbar region; Z45.1 Encounter for adjustment and management of infusion pump; F43.23 Adjustment disorder with mixed anxiety and depressed mood; R00.0 Tachycardia, unspecified
CPT/HCPCS: 62370; 99213

== ENCOUNTER → 2023-11-14 11:34 | Outpatient (BNVA) | payer OTHER, SELFPAY | PROVIDERS: PCP Internal Medicine; Visit Provider Anesthesiology | DX: M47.816 Spondylosis without myelopathy or radiculopathy, lumbar region (principal); M62.830 Muscle spasm of back; M96.1 Postlaminectomy syndrome, not elsewhere classified; G89.4 Chronic pain syndrome; G90.50 Complex regional pain syndrome I, unspecified; F43.23 Adjustment disorder with mixed anxiety and depressed mood; R00.0 Tachycardia, unspecified | CPT/HCPCS: 62370; 99212 ==

== ENCOUNTER 2023-12-19 13:53 | Outpatient (REF) | payer OTHER, SELFPAY ==
--- NOTE | ~2023-12-19 | CT_ITS ---
EXAMINATION: CT PELVIS WITHOUT CONTRAST CLINICAL INFORMATION: Postlaminectomy syndrome. COMPARISON: None available. TECHNIQUE: Helical scanning was performed with submillimeter collimation through the pelvis. Sagittal and coronal multiplanar 2-D reconstructions were obtained. This CT examination was performed using dose optimization techniques as appropriate, variously including the following: *Automated exposure control *Adjustment of mA and/or kV according to patient size (this includes techniques or standardized protocols for targeted exams where dose is matched to indication/reason for exam; i.e. extremities or head) *Use of iterative reconstruction technique DLP: 367 mGy-cm FINDINGS: PELVIS: No pelvic mass or fluid collection. The visualized intrapelvic structures are grossly unremarkable. No pelvic lymphadenopathy. No palpable hernia. No soft tissue mass or fluid collection. OSSEOUS STRUCTURES: Postsurgical change in the lower lumbar spine including posterior decompression and stabilization hardware. No hardware fracture. No perihardware lucency to suggest loosening or infection. Bony fusion of the L4 and L5 vertebral bodies with partial fusion of the L5 and S1 vertebral bodies. No acute fracture or subluxation. No loss of vertebral body height. No pelvic or proximal hip fracture. No concerning lytic or blastic osseous lesion. No evidence of avascular necrosis. The visualized paraspinal soft tissues are grossly unremarkable without soft tissue mass, fluid collection, or stranding. Mild right-sided neural foraminal stenosis. Evaluation of disc bulges, stenosis, and nerve roots limited on CT examination. No significant bony central canal stenosis. CT/CT bony pelvis IMPRESSION: 1. Postsurgical change in the lower lumbar spine including posterior decompression and stabilization hardware. No evidence of hardware complication. Bony fusion of the L4 and L5 vertebral bodies with partial fusion of the L5 and S1 vertebral bodies. 2. Mild right-sided neural foraminal stenosis. Evaluation of disc bulges, stenosis, and nerve roots limited on CT examination. No significant bony central canal stenosis.
== END 2023-12-19 13:54 | disposition home or self-care (01) ==
LOC: HO.CT 13:53
PROVIDERS: PCP Internal Medicine; Visit Provider Anesthesiology
DX: M96.1 Postlaminectomy syndrome, not elsewhere classified (principal); M46.1 Sacroiliitis, not elsewhere classified
CPT/HCPCS: 72192

== ENCOUNTER 2024-01-02 11:25 | Outpatient (AMB) | payer OTHER, SELFPAY ==
--- NOTE | 2024-01-02 11:30 | MHC.OFFVIS ---
Vital Signs 01/02/24 11:41 Height 5 ft 3 in Weight 166 lb 4 oz BMI 29.4 BP 95/52 L Blood Pressure Location Lt brachial Position Sitting Respiration 14 Pulse 97 Pulse Source Pulse Oximeter Pulse Oximetry (%) 95 Oxygen Delivery Method Room Air Intake Visit Reasons: ITDD Refill Intake Note: Patient comes in for intrathecal medication refill. Reports pain 7/10. Allergies No Known Allergies Allergy (Verified 01/02/24 11:40) HPI Comments Details: Celina is back in my office for intrathecal pain pump refill. She is also here for follow-up after a CT scan of the bony pelvis. She exhibits signs of bilateral sacroiliitis. Mostly her symptoms are on the right with Malik test positive on the right Gaenslen test positive on the right and 14 finger test is positive on the right. She reports today pain 7 of 10. She reports moderate pain relief when she administers the PTM dose to herself. She reports that the pain relief lasts 1-2 hours until the only numbness lasts. I will increase the doses of the medications today with PTM dose increase from 45 micro g 250 micro g and continuous dose stays the same as 80 micro g of fentanyl. This will increase corresponding doses of the bupivacaine as well. I offered her to perform bilateral therapeutic sacroiliac joint injection under anesthesia. The patient agreed to go for the procedure only under anesthesia. Deep sedation is possible for this patient. [facility] Medical History (Updated 01/02/24 @ 12:06 by Cal Poole MD) Anxiety and depression Adjustment disorder with mixed anxiety and depressed mood Left foot pain Chronic pain syndrome CRPS (complex regional pain syndrome) type I Failed back syndrome, 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 Surgical History (Updated 05/11/22 @ 06:10 by Ivett Mata) History of adenoidectomy Previous section Tubal ligation status History of back surgery H/O hand surgery H/O heart surgery S/P tonsillectomy Social History Patient Tobacco Use Status: Current someday Tobacco user Tobacco use type: Cigarette Cigarettes Per Day: 3 Years Smoked: 10 Review of Systems Const All systems reviewed & are unremarkable except as noted in HPI and below ENT Reports Normal hearing present Neuro Reports Normal hearing present and Denies Sensory deficit (Neuro) Physical Exam Vital Signs: Last Vital Signs Pulse 97 01/02/24 11:41 Resp 14 01/02/24 11:41 BP 95/52 L 01/02/24 11:41 Pulse Ox 95 01/02/24 11:41 Oxygen Delivery Method Room Air 01/02/24 11:41 BMI result Body Mass Index 29.4 Const General: cooperative, comfortable and no acute distress Nutritional Appearance: average body habitus Limitations: no limitations HEENT Head: Yes normal to inspection, Yes normocephalic and Yes atraumatic Ears: hearing grossly normal bilaterally Face and sinus: Yes normal facial exam and Yes face symmetric Mouth: moist mucous membranes Eyes General: appearance normal, both eyes and all related structures Visual Syed: normal visual syed by confrontation Pupils: Equal, round and reactive pupils present EOM: EOMs intact bilaterally Neck Neck: Yes normal visual inspection, Yes no lymphadenopathy, Yes supple, No anterior neck swelling and Yes no JVD Resp Effort & Inspection: normal respiratory effort, able to speak in complete sentences, no audible wheezes, no cough, no respiratory distress and symmetric chest movement Cardio Jugular venous distension: no JVD GI Inspection: Yes normal to inspection General: Yes no CVA tenderness Back/Spine/Pelvis Other: Malik test and Gaenslen test are positive on the right. Fourteen finger test is positive on the right. Back: no CVA tenderness Cervical Spine: cervical ROM normal, cervical muscular tenderness, pain with cervical ROM and No Cervical spine tenderness Thoracic/Lumbar Spine: thoracic and lumbar spine normal to inspection, Thoracic/lumbar spine scar(s), Lasegue's sign negative, straight leg raise negative bilaterally, pain with thoraco-lumbar ROM, paraspinal muscle tenderness, thoraco-lumbar ROM limited, thoraco-lumbar spasm, No thoracic spinal tenderness and No lumbar spinal tenderness Pelvis: buttock tenderness on the left Sacroiliac joints: bilaterally tender to palpation Skin General skin exam: no rashes or lesions noted Neuro Cranial nerves: Yes Equal, round and reactive pupils present and Yes Normal hearing present Cognition (Neuro): normal cognition Sensory Exam: No Sensory deficit (Neuro) Assessment & Plan Assessment & Plan (1) Chronic pain syndrome: Code(s): G89.4 - Chronic pain syndrome Category: Medical (2) Failed back syndrome, lumbar: Code(s): M96.1 - Postlaminectomy syndrome, not elsewhere classified Category: Medical (3) Spondylosis of lumbar region without myelopathy or radiculopathy: Code(s): M47.816 - Spondylosis without myelopathy or radiculopathy, lumbar region Category: Medical (4) CRPS (complex regional pain syndrome) type I: Code(s): G90.50 - Complex regional pain syndrome I, unspecified Category: Medical (5) Muscle spasm of back: Code(s): M62.830 - Muscle spasm of back Category: Medical (6) Adjustment disorder with mixed anxiety and depressed mood: Code(s): F43.23 - Adjustment disorder with mixed anxiety and depressed mood Category: Medical (7) Pain of both sacroiliac joints: Code(s): M53.3 - Sacrococcygeal disorders, not elsewhere classified Category: Medical (8) Sacroiliitis: Code(s): M46.1 - Sacroiliitis, not elsewhere classified Category: Medical Plan: I will schedule this patient for bilateral therapeutic sacroiliac joint injection. The procedure to be performed under deep sedation. I do not mind to perform it under deep sedation. Plan Intrathecal pump refill. THE PATIENT CAME TODAY to the office FOR THE CHANGE OF THE MEDICATION IN her PAIN PUMP. The name and date of were verified and informed consent was obtained for the procedure. ?The pump was interrogated and the residual amount of fluid was found to be 2.4 mL. SHE WAS POSITIONED prone on the bed AND THE AREA OF THE INTRATHECAL PUMP WAS PREPPED WITH CHLORAPREP. The fenestrated drape was sterilely applied over the area of the pump. Sterile gloves were worn and of the aspiration system was assembled containing 2 in 22 gauge noncoring needle, the needle was connected to extension tubing which was connected to the 20 cc sterile syringe. The pain pump was palpated under the skin in the patient's right buttock area. The needle was inserted through the skin and the central plug of the pain pump and fluid was aspirated. The clear fluid was going into the syringe the total amount of the fluid was 3.0 mL .. After that a new batch? of medication was obtained which was containing Fentanyl in concentration 1000 micro g/ml and bupivacaine 40 mg per ml plus clonidine 600 mcg per ml. The admixture was made in 20 cc syringe prepared by [facility] compounding pharmacy. The syringe was connected to the bacterial filter, and then connected to the extension tubing. After that the medication in the syringe was slowly instilled into the pump with aspirations at 15 and 5 cc willis.? The pump was reprogrammed for the doses of Fentanyl 80 mcg per day with corresponding dose of bupivacaine and clonidine? The patient was given 6 doses of PTM 55 micrograms of fentanyl intrathecally? every 3 hours with maximum 6 activations per 24 hour. Patient Instructions: I Coding Level of Care Code Est Pt Level 3 (88809) Procedure Only Diagnoses Chronic pain syndrome G89.4 Failed back syndrome, lumbar M96.1 Spondylosis of lumbar region without myelopathy or radiculopathy M47.816 CRPS (complex regional pain syndrome) type I G90.50 Muscle spasm of back M62.830 Adjustment disorder with mixed anxiety and depressed mood F43.23 Pain of both sacroiliac joints M53.3 Sacroiliitis M46.1
[2024-01-02 11:41] VITALS: BP 95/52; PULSE 97; RESP 14; O2SAT 95; BMI 29.4
== END 2024-01-02 11:56 | disposition home or self-care (01) ==
PROVIDERS: PCP Internal Medicine; Visit Provider Anesthesiology
DX: G89.4 Chronic pain syndrome (principal); M96.1 Postlaminectomy syndrome, not elsewhere classified; M47.816 Spondylosis without myelopathy or radiculopathy, lumbar region; Z45.1 Encounter for adjustment and management of infusion pump; G90.50 Complex regional pain syndrome I, unspecified; M62.830 Muscle spasm of back; F43.23 Adjustment disorder with mixed anxiety and depressed mood; M53.3 Sacrococcygeal disorders, not elsewhere classified; M46.1 Sacroiliitis, not elsewhere classified
CPT/HCPCS: 62370; 99213

== ENCOUNTER → 2024-01-02 11:25 | Outpatient (BNVA) | payer OTHER, SELFPAY | PROVIDERS: PCP Internal Medicine; Visit Provider Anesthesiology | DX: Z45.1 Encounter for adjustment and management of infusion pump (principal); G89.4 Chronic pain syndrome; M96.1 Postlaminectomy syndrome, not elsewhere classified; M47.816 Spondylosis without myelopathy or radiculopathy, lumbar region; G90.50 Complex regional pain syndrome I, unspecified; M62.830 Muscle spasm of back; M53.3 Sacrococcygeal disorders, not elsewhere classified; M46.1 Sacroiliitis, not elsewhere classified; F43.23 Adjustment disorder with mixed anxiety and depressed mood | CPT/HCPCS: 62370; 99212 ==

== ENCOUNTER 2024-02-13 10:34 | Outpatient (AMB) | payer OTHER, SELFPAY ==
--- NOTE | 2024-02-13 11:14 | MHC.OFFVIS ---
Vital Signs 02/13/24 11:15 Height 5 ft 3 in Weight 165 lb 8 oz BMI 29.3 BP 87/60 L Blood Pressure Location Lt brachial Position Sitting Respiration 16 Pulse 98 Pulse Source Pulse Oximeter Pulse Oximetry (%) 93 Oxygen Delivery Method Room Air Intake Visit Reasons: ITDD REFILL Intake Note: Patient comes in for intrathecal medication refill. Reports pain 2/10. Allergies No Known Allergies Allergy (Verified 02/13/24 11:14) HPI Comments Details: Celina is back in my office for intrathecal pain pump refill. She changed in nature of the complained today and she started to complain on pain in the lower back with radiation into the right lower extremity. She states that she feels sensation of coldness in the projection of her right foot. It sounds to me today more like radiculopathy more than sacroiliac joint problems. She has postlaminectomy syndrome and I would like to evaluate her lumbar spine under MRI. Previously we were planning to do sacroiliac joint injections with till can proceed with this intervention, however I feel that MRI needs to be performed. Prior: She is also here for follow-up after a CT scan of the bony pelvis. She exhibits signs of bilateral sacroiliitis. Mostly her symptoms are on the right with Malik test positive on the right Gaenslen test positive on the right and 14 finger test is positive on the right. She reports today pain 7 of 10. She reports moderate pain relief when she administers the PTM dose to herself. She reports that the pain relief lasts 1-2 hours until the only numbness lasts. I will increase the doses of the medications today with PTM dose increase from 45 micro g 250 micro g and continuous dose stays the same as 80 micro g of fentanyl. This will increase corresponding doses of the bupivacaine as well. I offered her to perform bilateral therapeutic sacroiliac joint injection under anesthesia. The patient agreed to go for the procedure only under anesthesia. Deep sedation is possible for this patient. [facility] Medical History (Updated 02/13/24 @ 15:15 by Cal Poole MD) Anxiety and depression Adjustment disorder with mixed anxiety and depressed mood Left foot pain Chronic pain syndrome CRPS (complex regional pain syndrome) type I Failed back syndrome, 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 Surgical History (Updated 05/11/22 @ 06:10 by Ivett Mata) History of adenoidectomy Previous section Tubal ligation status History of back surgery H/O hand surgery H/O heart surgery S/P tonsillectomy Social History Patient Tobacco Use Status: Current someday Tobacco user Tobacco use type: Cigarette Cigarettes Per Day: 3 Years Smoked: 10 Review of Systems Const All systems reviewed & are unremarkable except as noted in HPI and below ENT Reports Normal hearing present Neuro Reports Normal hearing present and Denies Sensory deficit (Neuro) Physical Exam Vital Signs: Last Vital Signs Pulse 98 02/13/24 11:15 Resp 16 02/13/24 11:15 BP 87/60 L 02/13/24 11:15 Pulse Ox 93 02/13/24 11:15 Oxygen Delivery Method Room Air 02/13/24 11:15 BMI result Body Mass Index 29.3 Const General: cooperative, comfortable and no acute distress Nutritional Appearance: average body habitus Limitations: no limitations HEENT Head: Yes normal to inspection, Yes normocephalic and Yes atraumatic Ears: hearing grossly normal bilaterally Face and sinus: Yes normal facial exam and Yes face symmetric Mouth: moist mucous membranes Eyes General: appearance normal, both eyes and all related structures Visual Syed: normal visual syed by confrontation Pupils: Equal, round and reactive pupils present EOM: EOMs intact bilaterally Neck Neck: Yes normal visual inspection, Yes no lymphadenopathy, Yes supple, No anterior neck swelling and Yes no JVD Resp Effort & Inspection: normal respiratory effort, able to speak in complete sentences, no audible wheezes, no cough, no respiratory distress and symmetric chest movement Cardio Jugular venous distension: no JVD GI Inspection: Yes normal to inspection General: Yes no CVA tenderness Back/Spine/Pelvis Other: Malik test and Gaenslen test are positive on the right. Fourteen finger test is positive on the right. Back: no CVA tenderness Cervical Spine: cervical ROM normal, cervical muscular tenderness, pain with cervical ROM and No Cervical spine tenderness Thoracic/Lumbar Spine: thoracic and lumbar spine normal to inspection, Thoracic/lumbar spine scar(s), Lasegue's sign negative, straight leg raise negative bilaterally, pain with thoraco-lumbar ROM, paraspinal muscle tenderness, thoraco-lumbar ROM limited, thoraco-lumbar spasm, No thoracic spinal tenderness and No lumbar spinal tenderness Pelvis: buttock tenderness on the left Sacroiliac joints: bilaterally tender to palpation Skin General skin exam: no rashes or lesions noted Neuro Cranial nerves: Yes Equal, round and reactive pupils present and Yes Normal hearing present Cognition (Neuro): normal cognition Sensory Exam: No Sensory deficit (Neuro) Results Reviewed Results Reviewed: XRAY LUMBAR SPINE 2020 FINDINGS: The patient is status post posterior spinal fusion L5-S1 with bilateral posterior spinal rods. Pedicle screws and discarded where at the L5-S1. The patient is also status post kyphoplasty / vertebroplasty at T11 with mild residual anterior wedging are well maintained. Otherwise, vertebral body heights are well maintained. No acute fracture or bone lesion is identified. There is severe disc space narrowing at the L4-5 level. The rest of the disc spaces are well maintained. Normal alignment. No spondylolysis or spondylolisthesis. Assessment & Plan Assessment & Plan (1) Chronic pain syndrome: Code(s): G89.4 - Chronic pain syndrome Category: Medical (2) Failed back syndrome, lumbar: Code(s): M96.1 - Postlaminectomy syndrome, not elsewhere classified Category: Medical (3) Spondylosis of lumbar region without myelopathy or radiculopathy: Code(s): M47.816 - Spondylosis without myelopathy or radiculopathy, lumbar region Category: Medical (4) CRPS (complex regional pain syndrome) type I: Code(s): G90.50 - Complex regional pain syndrome I, unspecified Category: Medical (5) Muscle spasm of back: Code(s): M62.830 - Muscle spasm of back Category: Medical (6) Adjustment disorder with mixed anxiety and depressed mood: Code(s): F43.23 - Adjustment disorder with mixed anxiety and depressed mood Category: Medical (7) Pain of both sacroiliac joints: Code(s): M53.3 - Sacrococcygeal disorders, not elsewhere classified Category: Medical (8) Sacroiliitis: Code(s): M46.1 - Sacroiliitis, not elsewhere classified Category: Medical Plan: The patient is scheduled for bilateral therapeutic sacroiliac joint injection however I would like to see the MRI of the lumbar spine. She needs to come to the office within 2 hours after MRI will be performed. Radiculopathy above the level of the patient is performed spinal fusion is suspected. (9) Postlaminectomy syndrome: Code(s): M96.1 - Postlaminectomy syndrome, not elsewhere classified Category: Medical (10) Radiculopathy, lumbar region: Code(s): M54.16 - Radiculopathy, lumbar region Category: Medical Plan Intrathecal pump refill. THE PATIENT CAME TODAY to the office FOR THE CHANGE OF THE MEDICATION IN her PAIN PUMP. The name and date of were verified and informed consent was obtained for the procedure. ?The pump was interrogated and the residual amount of fluid was found to be 2.4 mL. SHE WAS POSITIONED prone on the bed AND THE AREA OF THE INTRATHECAL PUMP WAS PREPPED WITH CHLORAPREP. The fenestrated drape was sterilely applied over the area of the pump. Sterile gloves were worn and of the aspiration system was assembled containing 2 in 22 gauge noncoring needle, the needle was connected to extension tubing which was connected to the 20 cc sterile syringe. The pain pump was palpated under the skin in the patient's right buttock area. The needle was inserted through the skin and the central plug of the pain pump and fluid was aspirated. The clear fluid was going into the syringe the total amount of the fluid was 2.8 mL .. After that a new batch? of medication was obtained which was containing Fentanyl in concentration 1000 micro g/ml and bupivacaine 40 mg per ml plus clonidine 600 mcg per ml. The admixture was made in 20 cc syringe prepared by [facility] compounding pharmacy. The syringe was connected to the bacterial filter, and then connected to the extension tubing. After that the medication in the syringe was slowly instilled into the pump with aspirations at 15 and 5 cc willis.? The pump was reprogrammed for the doses of Fentanyl 80 mcg per day with corresponding dose of bupivacaine and clonidine? The patient was given 6 doses of PTM 55 micrograms of fentanyl intrathecally? every 3 hours with maximum 6 activations per 24 hour. Patient reports significant pain relief after application of the PTM doses. Orders: Orders MR lumbar spine wo/w con Today M54.16 - Radiculopathy, lumbar region, M96.1 - Postlaminectomy syndrome, not elsewhere classified Basic Metabolic Panel Today M54.16 - Radiculopathy, lumbar region, M96.1 - Postlaminectomy syndrome, not elsewhere classified Patient Instructions: I here by testify that I spent 38 minutes in conversation with this patient as well as planning her care, evaluating prior records, and organizing this note. Coding Level of Care Code Est Pt Level 4 (66294) Diagnoses Chronic pain syndrome G89.4 Failed back syndrome, lumbar M96.1 Spondylosis of lumbar region without myelopathy or radiculopathy M47.816 CRPS (complex regional pain syndrome) type I G90.50 Muscle spasm of back M62.830 Adjustment disorder with mixed anxiety and depressed mood F43.23 Pain of both sacroiliac joints M53.3 Sacroiliitis M46.1 Postlaminectomy syndrome M96.1 Radiculopathy, lumbar region M54.16
[2024-02-13 11:15] VITALS: BP 87/60; PULSE 98; RESP 16; O2SAT 93; BMI 29.3
== END 2024-02-13 11:53 | disposition home or self-care (01) ==
PROVIDERS: PCP Internal Medicine; Visit Provider Anesthesiology
DX: M53.3 Sacrococcygeal disorders, not elsewhere classified (principal); M46.1 Sacroiliitis, not elsewhere classified; M54.16 Radiculopathy, lumbar region; F43.23 Adjustment disorder with mixed anxiety and depressed mood; Z45.1 Encounter for adjustment and management of infusion pump
CPT/HCPCS: 99214

== ENCOUNTER → 2024-02-13 10:34 | Outpatient (BNVA) | payer OTHER, SELFPAY | PROVIDERS: PCP Internal Medicine; Visit Provider Anesthesiology | DX: Z45.1 Encounter for adjustment and management of infusion pump (principal); M46.1 Sacroiliitis, not elsewhere classified; M54.16 Radiculopathy, lumbar region; M53.3 Sacrococcygeal disorders, not elsewhere classified; M47.816 Spondylosis without myelopathy or radiculopathy, lumbar region; G89.4 Chronic pain syndrome; G90.50 Complex regional pain syndrome I, unspecified; M62.830 Muscle spasm of back; M96.1 Postlaminectomy syndrome, not elsewhere classified; F43.23 Adjustment disorder with mixed anxiety and depressed mood | CPT/HCPCS: 99212 ==

== ENCOUNTER 2024-03-26 09:33 | Outpatient (AMB) | payer OTHER, SELFPAY ==
--- NOTE | 2024-03-26 09:35 | A.OFFVIS_ITS ---
Vital Signs 03/26/24 09:55 Height 5 ft 3 in Weight 170 lb 2 oz BMI 30.1 BP 92/50 L Blood Pressure Location Lt brachial Position Sitting Respiration 14 Pulse 63 Pulse Source Pulse Oximeter Pulse Oximetry (%) 92 Oxygen Delivery Method Room Air Intake Visit Reasons: ITDD REFILL Intake Note: Patient comes in for intrathecal medication refill. Reports pain 2/10. Allergies No Known Allergies Allergy (Verified 03/26/24 09:57) HPI Comments Details: Celina is back in my office for intrathecal pain pump refill. Last time she changed in nature of the complained and she started to complain on pain in the lower back with radiation into the right lower extremity. She states that she feels sensation of coldness in the projection of her right foot. It sounds to me today more like radiculopathy more than sacroiliac joint problems. She has postlaminectomy syndrome and I would like to evaluate her lumbar spine under MRI. I will evaluate the MRI and make a decision the nature of her complaints. She is here today to refill her intrathecal pain pump, the results of the refill are as below. Prior: She is also here for follow-up after a CT scan of the bony pelvis. She exhibits signs of bilateral sacroiliitis. Mostly her symptoms are on the right with Malik test positive on the right Gaenslen test positive on the right and 14 finger test is positive on the right. She reports today pain 7 of 10. She reports moderate pain relief when she administers the PTM dose to herself. She reports that the pain relief lasts 1-2 hours until the only numbness lasts. I will increase the doses of the medications today with PTM dose increase from 45 micro g 250 micro g and continuous dose stays the same as 80 micro g of fentanyl. This will increase corresponding doses of the bupivacaine as well. I offered her to perform bilateral therapeutic sacroiliac joint injection under anesthesia. The patient agreed to go for the procedure only under anesthesia. Deep sedation is possible for this patient. [facility] Medical History (Updated 02/13/24 @ 15:15 by Cal Poole MD) Anxiety and depression Adjustment disorder with mixed anxiety and depressed mood Left foot pain Chronic pain syndrome CRPS (complex regional pain syndrome) type I Failed back syndrome, 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 Surgical History (Updated 05/11/22 @ 06:10 by Ivett Mata RN) History of adenoidectomy Previous section Tubal ligation status History of back surgery H/O hand surgery H/O heart surgery S/P tonsillectomy Social History Patient Tobacco Use Status: Current someday Tobacco user Tobacco use type: Cigarette Cigarettes Per Day: 3 Years Smoked: 10 Review of Systems Const All systems reviewed & are unremarkable except as noted in HPI and below ENT Reports Normal hearing present Neuro Reports Normal hearing present and Denies Sensory deficit (Neuro) Physical Exam Vital Signs: Last Vital Signs Pulse 63 03/26/24 09:55 Resp 14 03/26/24 09:55 BP 92/50 L 03/26/24 09:55 Pulse Ox 92 03/26/24 09:55 Oxygen Delivery Method Room Air 03/26/24 09:55 BMI result Body Mass Index 30.1 Const General: cooperative, comfortable and no acute distress Nutritional Appearance: average body habitus Limitations: no limitations HEENT Head: Yes normal to inspection, Yes normocephalic and Yes atraumatic Ears: hearing grossly normal bilaterally Face and sinus: Yes normal facial exam and Yes face symmetric Mouth: moist mucous membranes Eyes General: appearance normal, both eyes and all related structures Visual Syed: normal visual syed by confrontation Pupils: Equal, round and reactive pupils present EOM: EOMs intact bilaterally Neck Neck: Yes normal visual inspection, Yes no lymphadenopathy, Yes supple, No anterior neck swelling and Yes no JVD Resp Effort & Inspection: normal respiratory effort, able to speak in complete sentences, no audible wheezes, no cough, no respiratory distress and symmetric chest movement Cardio Jugular venous distension: no JVD GI Inspection: Yes normal to inspection General: Yes no CVA tenderness Back/Spine/Pelvis Other: Malik test and Gaenslen test are positive on the right. Fourteen finger test is positive on the right. Back: no CVA tenderness Cervical Spine: cervical ROM normal, cervical muscular tenderness, pain with cervical ROM and No Cervical spine tenderness Thoracic/Lumbar Spine: thoracic and lumbar spine normal to inspection, Thorac ic/lumbar spine scar(s), Lasegue's sign negative, straight leg raise negative bilaterally, pain with thoraco-lumbar ROM, paraspinal muscle tenderness, thoraco-lumbar ROM limited, thoraco-lumbar spasm, No thoracic spinal tenderness and No lumbar spinal tenderness Pelvis: buttock tenderness on the left Sacroiliac joints: bilaterally tender to palpation Skin General skin exam: no rashes or lesions noted Neuro Cranial nerves: Yes Equal, round and reactive pupils present and Yes Normal hearing present Cognition (Neuro): normal cognition Sensory Exam: No Sensory deficit (Neuro) Assessment & Plan Assessment & Plan (1) Chronic pain syndrome: Code(s): G89.4 - Chronic pain syndrome Category: Medical (2) Failed back syndrome, lumbar: Code(s): M96.1 - Postlaminectomy syndrome, not elsewhere classified Category: Medical (3) Spondylosis of lumbar region without myelopathy or radiculopathy: Code(s): M47.816 - Spondylosis without myelopathy or radiculopathy, lumbar region Category: Medical (4) CRPS (complex regional pain syndrome) type I: Code(s): G90.50 - Complex regional pain syndrome I, unspecified Category: Medical (5) Muscle spasm of back: Code(s): M62.830 - Muscle spasm of back Category: Medical (6) Adjustment disorder with mixed anxiety and depressed mood: Code(s): F43.23 - Adjustment disorder with mixed anxiety and depressed mood Category: Medical (7) Pain of both sacroiliac joints: Code(s): M53.3 - Sacrococcygeal disorders, not elsewhere classified Category: Medical (8) Sacroiliitis: Code(s): M46.1 - Sacroiliitis, not elsewhere classified Category: Medical (9) Postlaminectomy syndrome: Code(s): M96.1 - Postlaminectomy syndrome, not elsewhere classified Category: Medical (10) Radiculopathy, lumbar region: Code(s): M54.16 - Radiculopathy, lumbar region Category: Medical Plan Intrathecal pump refill. THE PATIENT CAME TODAY to the office FOR THE CHANGE OF THE MEDICATION IN her PAIN PUMP. The name and date of were verified and informed consent was obtained for the procedure. ?The pump was interrogated and the residual amount of fluid was found to be 2.3mL. SHE WAS POSITIONED prone on the bed AND THE AREA OF THE INTRATHECAL PUMP WAS PREPPED WITH CHLORAPREP. The fenestrated drape was sterilely applied over the area of the pump. Sterile gloves were worn and of the aspiration system was assembled containing 2 in 22 gauge noncoring needle, the needle was connected to extension tubing which was connected to the 20 cc sterile syringe. The pain pump was palpated under the skin in the patient's right buttock area. The needle was inserted through the skin and the central plug of the pain pump and fluid was aspirated. The clear fluid was going into the syringe the total amount of the fluid was 2.6 mL .. After that a new batch? of medication was obtained which was containing Fentanyl in concentration 1000 micro g/ml and bupivacaine 40 mg per ml plus clonidine 600 mcg per ml. The admixture was made in 20 cc syringe prepared by [facility] compounding pharmacy. The syringe was connected to the bacterial filter, and then connected to the extension tubing. After that the medication in the syringe was slowly instilled into the pump with aspirations at 15 and 5 cc willis.? The pump was reprogrammed for the doses of Fentanyl 80 mcg per day with corresponding dose of bupivacaine and clonidine? The patient was given 6 doses of PTM 55 micrograms of fentanyl intrathecally? every 3 hours with maximum 6 activations per 24 hour. Patient reports significant pain relief after application of the PTM doses. Patient Instructions: She is scheduled for MRI. She was given an instruction to visit the office hours after MRI is complete to read her pump and make sure that the device recovered after MRI. Coding Level of Care Code Est Pt Level 3 (43990) Procedure Only Diagnoses Chronic pain syndrome G89.4 Failed back syndrome, lumbar M96.1 Spondylosis of lumbar region without myelopathy or radiculopathy M47.816 CRPS (complex regional pain syndrome) type I G90.50 Muscle spasm of back M62.830 Adjustment disorder with mixed anxiety and depressed mood F43.23 Pain of both sacroiliac joints M53.3 Sacroiliitis M46.1 Postlaminectomy syndrome M96.1 Radiculopathy, lumbar region M54.16
[2024-03-26 09:55] VITALS: BP 92/50; PULSE 63; RESP 14; O2SAT 92; BMI 30.1
== END 2024-03-26 09:53 | disposition home or self-care (01) ==
PROVIDERS: PCP Internal Medicine; Visit Provider Anesthesiology
DX: G89.4 Chronic pain syndrome (principal); M96.1 Postlaminectomy syndrome, not elsewhere classified; M47.816 Spondylosis without myelopathy or radiculopathy, lumbar region; G90.50 Complex regional pain syndrome I, unspecified; Z45.1 Encounter for adjustment and management of infusion pump; M62.830 Muscle spasm of back; F43.23 Adjustment disorder with mixed anxiety and depressed mood; M53.3 Sacrococcygeal disorders, not elsewhere classified; M46.1 Sacroiliitis, not elsewhere classified; M54.16 Radiculopathy, lumbar region
CPT/HCPCS: 62370; 99213

== ENCOUNTER → 2024-03-26 09:33 | Outpatient (BNVA) | payer OTHER, SELFPAY | PROVIDERS: Visit Provider Anesthesiology | DX: Z45.89 Encounter for adjustment and management of other implanted devices (principal); M47.816 Spondylosis without myelopathy or radiculopathy, lumbar region; M96.1 Postlaminectomy syndrome, not elsewhere classified; M62.830 Muscle spasm of back; M53.3 Sacrococcygeal disorders, not elsewhere classified; M46.1 Sacroiliitis, not elsewhere classified; M54.16 Radiculopathy, lumbar region; G90.50 Complex regional pain syndrome I, unspecified; F43.23 Adjustment disorder with mixed anxiety and depressed mood; G89.4 Chronic pain syndrome | CPT/HCPCS: 62370; 99212 ==

== ENCOUNTER 2024-04-13 13:07 | Outpatient (REF) | payer OTHER, SELFPAY ==
--- NOTE | ~2024-04-13 | MR_ITS ---
EXAMINATION: MR LUMBAR SPINE WITHOUT CONTRAST CLINICAL INFORMATION: Postlaminectomy syndrome. COMPARISON: Intraoperative fluoroscopic imaging 05/11/2022. TECHNIQUE: MRI of the lumbar spine was obtained using routine sequences without contrast. FINDINGS: The patient was unable to tolerate this examination. Many of the sequences are heavily degraded by patient motion. There is a chronic compression deformity of the T11 vertebral body with approximately 50% vertebral height loss anteriorly. Bone cement material within the T11 vertebral body suggests chronic changes of a prior vertebral augmentation. No overt retropulsion of posterior cortex and no canal compromise at this level. There are chronic postoperative changes of a posterior spinal fusion. Transpedicular hardware extends from L5-S1. The tip of the conus medullaris is located at approximately the level of L1. No identifiable mass effect on the lower thoracic cord. There is a slightly bulging disc at the level of L3-L4 causing mild canal stenosis. Otherwise no canal compromise. No foraminal nerve root compression. Limited visualization of the retroperitoneal anatomy reveals no abnormal finding. MR/MR lumbar spine wo con IMPRESSION: Patient motion degrades image quality for the diagnostic accuracy of this examination is limited. There is a chronic compression fracture of the T11 vertebral body with approximately 50% vertebral height loss anteriorly. Bone cement material at this level indicates a prior vertebral augmentation. There are chronic postoperative changes of a posterior spinal fusion with transpedicular hardware extending from L5-S1. There is a slightly bulging disc at the level of L3-L4 causing mild canal stenosis. Otherwise no canal compromise. No foraminal nerve root compression. Electronically signed by: Christopher Arroyo MD 04/30/2024 01:39 PM EDT
--- NOTE | ~2024-04-13 | XR_ITS ---
EXAMINATION: XR LUMBOSACRAL SPINE CLINICAL INFORMATION: Assess pain pump orientation COMPARISON: None available. TECHNIQUE: Two views of the lumbosacral spine. FINDINGS: The pain pump overlies the right gluteal region. Postsurgical changes of the lower lumbar spine. Hardware is intact. There is advanced degenerative changes L4-S1 but no fracture or destructive process. XR/XR lumbar spine 2-3V IMPRESSION: Pain pump device is situated over the right gluteal region as described. Electronically signed by: Rigo Dave MD 04/14/2024 08:06 AM EDT
== END 2024-04-13 13:08 | disposition home or self-care (01) ==
LOC: HO.MRI 13:07
PROVIDERS: Visit Provider Anesthesiology
DX: M96.1 Postlaminectomy syndrome, not elsewhere classified (principal); M54.16 Radiculopathy, lumbar region
CPT/HCPCS: 72100; 72148

== ENCOUNTER 2024-05-07 10:32 | Outpatient (AMB) | payer OTHER, SELFPAY ==
--- NOTE | 2024-05-07 10:33 | A.OFFVIS_ITS ---
Vital Signs 05/07/24 11:53 Height 5 ft 3 in Weight 165 lb BMI 29.2 BP 97/52 L Blood Pressure Location Lt brachial Position Sitting Respiration 14 Pulse 83 Pulse Source Pulse Oximeter Pulse Oximetry (%) 91 L Oxygen Delivery Method Room Air Intake Visit Reasons: ITDD PUMP REFILL Intake Note: Patient comes in for intrathecal medication refill. Reports pain 6/10. Allergies No Known Allergies Allergy (Verified 05/07/24 11:54) HPI Comments Details: Celina is back in my office for intrathecal pain pump refill. Last time she changed in nature of the complained and she started to complain on pain in the lower back with radiation into the right lower extremity. She states that she feels sensation of coldness in the projection of her right foot. It sounds to me today more like radiculopathy more than sacroiliac joint problems. She has postlaminectomy syndrome and I would like to evaluate her lumbar spine under MRI. I will evaluate the MRI and make a decision the nature of her complaints. She is here today to refill her intrathecal pain pump, the results of the refill are as below. Prior: She is also here for follow-up after a CT scan of the bony pelvis. She exhibits signs of bilateral sacroiliitis. Mostly her symptoms are on the right with Malik test positive on the right Gaenslen test positive on the right and 14 finger test is positive on the right. She reports today pain 7 of 10. She reports moderate pain relief when she administers the PTM dose to herself. She reports that the pain relief lasts 1-2 hours until the only numbness lasts. I will increase the doses of the medications today with PTM dose increase from 45 micro g 250 micro g and continuous dose stays the same as 80 micro g of fentanyl. This will increase corresponding doses of the bupivacaine as well. I offered her to perform bilateral therapeutic sacroiliac joint injection under anesthesia. The patient agreed to go for the procedure only under anesthesia. Deep sedation is possible for this patient. [facility] Medical History (Updated 02/13/24 @ 15:15 by Cal Poole MD) Anxiety and depression Adjustment disorder with mixed anxiety and depressed mood Left foot pain Chronic pain syndrome CRPS (complex regional pain syndrome) type I Failed back syndrome, 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 Surgical History (Updated 05/11/22 @ 06:10 by Ivett Mata RN) History of adenoidectomy Previous section Tubal ligation status History of back surgery H/O hand surgery H/O heart surgery S/P tonsillectomy Social History Patient Tobacco Use Status: Current someday Tobacco user Tobacco use type: Cigarette Cigarettes Per Day: 3 Years Smoked: 10 Review of Systems Const All systems reviewed & are unremarkable except as noted in HPI and below ENT Reports Normal hearing present Neuro Reports Normal hearing present and Denies Sensory deficit (Neuro) Physical Exam Vital Signs: Last Vital Signs Pulse 83 05/07/24 11:53 Resp 14 05/07/24 11:53 BP 97/52 L 05/07/24 11:53 Pulse Ox 91 L 05/07/24 11:53 Oxygen Delivery Method Room Air 05/07/24 11:53 BMI result Body Mass Index 29.2 Const General: cooperative, comfortable and no acute distress Nutritional Appearance: average body habitus Limitations: no limitations HEENT Head: Yes normal to inspection, Yes normocephalic and Yes atraumatic Ears: hearing grossly normal bilaterally Face and sinus: Yes normal facial exam and Yes face symmetric Mouth: moist mucous membranes Eyes General: appearance normal, both eyes and all related structures Visual Syed: normal visual syed by confrontation Pupils: Equal, round and reactive pupils present EOM: EOMs intact bilaterally Neck Neck: Yes normal visual inspection, Yes no lymphadenopathy, Yes supple, No anterior neck swelling and Yes no JVD Resp Effort & Inspection: normal respiratory effort, able to speak in complete sentences, no audible wheezes, no cough, no respiratory distress and symmetric chest movement Cardio Jugular venous distension: no JVD GI Inspection: Yes normal to inspection General: Yes no CVA tenderness Back/Spine/Pelvis Other: Malik test and Gaenslen test are positive on the right. Fourteen finger test is positive on the right. Back: no CVA tenderness Cervical Spine: cervical ROM normal, cervical muscular tenderness, pain with cervical ROM and No Cervical spine tenderness Thoracic/Lumbar Spine: thoracic and lumbar spine normal to inspection, Tho racic/lumbar spine scar(s), Lasegue's sign negative, straight leg raise negative bilaterally, pain with thoraco-lumbar ROM, paraspinal muscle tenderness, thoraco-lumbar ROM limited, thoraco-lumbar spasm, No thoracic spinal tenderness and No lumbar spinal tenderness Pelvis: buttock tenderness on the left Sacroiliac joints: bilaterally tender to palpation Skin General skin exam: no rashes or lesions noted Neuro Cranial nerves: Yes Equal, round and reactive pupils present and Yes Normal hearing present Cognition (Neuro): normal cognition Sensory Exam: No Sensory deficit (Neuro) Assessment & Plan Assessment & Plan (1) Chronic pain syndrome: Code(s): G89.4 - Chronic pain syndrome Category: Medical (2) Failed back syndrome, lumbar: Code(s): M96.1 - Postlaminectomy syndrome, not elsewhere classified Category: Medical (3) Spondylosis of lumbar region without myelopathy or radiculopathy: Code(s): M47.816 - Spondylosis without myelopathy or radiculopathy, lumbar region Category: Medical (4) CRPS (complex regional pain syndrome) type I: Code(s): G90.50 - Complex regional pain syndrome I, unspecified Category: Medical (5) Muscle spasm of back: Code(s): M62.830 - Muscle spasm of back Category: Medical (6) Adjustment disorder with mixed anxiety and depressed mood: Code(s): F43.23 - Adjustment disorder with mixed anxiety and depressed mood Category: Medical (7) Pain of both sacroiliac joints: Code(s): M53.3 - Sacrococcygeal disorders, not elsewhere classified Category: Medical (8) Sacroiliitis: Code(s): M46.1 - Sacroiliitis, not elsewhere classified Category: Medical (9) Postlaminectomy syndrome: Code(s): M96.1 - Postlaminectomy syndrome, not elsewhere classified Category: Medical (10) Radiculopathy, lumbar region: Code(s): M54.16 - Radiculopathy, lumbar region Category: Medical Plan: MRI lumbar spine with and without contrast will be scheduled for this patient. This is to evaluate potential progression of her disease.. Plan Intrathecal pump refill. THE PATIENT CAME TODAY to the office FOR THE CHANGE OF THE MEDICATION IN her PAIN PUMP. The name and date of were verified and informed consent was obtained for the procedure. ?The pump was interrogated and the residual amount of fluid was found to be 2.3 mL. SHE WAS POSITIONED prone on the bed AND THE AREA OF THE INTRATHECAL PUMP WAS PREPPED WITH CHLORAPREP. The fenestrated drape was sterilely applied over the area of the pump. Sterile gloves were worn and of the aspiration system was assembled containing 2 in 22 gauge noncoring needle, the needle was connected to extension tubing which was connected to the 20 cc sterile syringe. The pain pump was palpated under the skin in the patient's right buttock area. The needle was inserted through the skin and the central plug of the pain pump and fluid was aspirated. The clear fluid was going into the syringe the total amount of the fluid was 2.6 mL .. After that a new batch? of medication was obtained which was containing Fentanyl in concentration 1000 micro g/ml and bupivacaine 40 mg per ml plus clonidine 600 mcg per ml. The admixture was made in 20 cc syringe prepared by [facility]. The syringe was connected to the bacterial filter, and then connected to the extension tubing. After that the medication in the syringe was slowly instilled into the pump with aspirations at 15 and 5 cc willis.? The pump was reprogrammed for the doses of Fentanyl 80 mcg per day with corresponding dose of bupivacaine and clonidine? The patient was given 6 doses of PTM 55 micrograms of fentanyl intrathecally? every 3 hours with maximum 6 activations per 24 hour. Patient reports significant pain relief after application of the PTM doses. Orders: Orders MR lumbar spine wo/w con Today M54.16 - Radiculopathy, lumbar region, M96.1 - Postlaminectomy syndrome, not elsewhere classified Coding Level of Care Code Est Pt Level 3 (20801) Procedure Only Diagnoses Chronic pain syndrome G89.4 Failed back syndrome, lumbar M96.1 Spondylosis of lumbar region without myelopathy or radiculopathy M47.816 CRPS (complex regional pain syndrome) type I G90.50 Muscle spasm of back M62.830 Adjustment disorder with mixed anxiety and depressed mood F43.23 Pain of both sacroiliac joints M53.3 Sacroiliitis M46.1 Postlaminectomy syndrome M96.1 Radiculopathy, lumbar region M54.16
[2024-05-07 11:53] VITALS: BP 97/52; PULSE 83; RESP 14; O2SAT 91; BMI 29.2
== END 2024-05-07 11:02 | disposition home or self-care (01) ==
PROVIDERS: PCP Internal Medicine; Visit Provider Anesthesiology
DX: G89.4 Chronic pain syndrome (principal); M96.1 Postlaminectomy syndrome, not elsewhere classified; M47.816 Spondylosis without myelopathy or radiculopathy, lumbar region; G90.50 Complex regional pain syndrome I, unspecified; Z45.1 Encounter for adjustment and management of infusion pump; M62.830 Muscle spasm of back; F43.23 Adjustment disorder with mixed anxiety and depressed mood; M53.3 Sacrococcygeal disorders, not elsewhere classified; M46.1 Sacroiliitis, not elsewhere classified; M54.16 Radiculopathy, lumbar region
CPT/HCPCS: 95991; 99213

== ENCOUNTER → 2024-05-07 10:32 | Outpatient (BNVA) | payer OTHER, SELFPAY | PROVIDERS: PCP Internal Medicine; Visit Provider Anesthesiology | DX: Z45.1 Encounter for adjustment and management of infusion pump (principal); M96.1 Postlaminectomy syndrome, not elsewhere classified; M47.816 Spondylosis without myelopathy or radiculopathy, lumbar region; M62.830 Muscle spasm of back; M53.3 Sacrococcygeal disorders, not elsewhere classified; M46.1 Sacroiliitis, not elsewhere classified; M54.16 Radiculopathy, lumbar region; F43.23 Adjustment disorder with mixed anxiety and depressed mood; G90.50 Complex regional pain syndrome I, unspecified; G89.4 Chronic pain syndrome | CPT/HCPCS: 99212 ==

== ENCOUNTER 2024-06-11 10:00 | Outpatient (AMB) | payer OTHER, SELFPAY ==
--- NOTE | 2024-06-11 10:04 | A.OFFVIS_ITS ---
Vital Signs 06/11/24 10:13 Height 5 ft 3 in Weight 162 lb 8 oz BMI 28.8 BP 82/54 L Blood Pressure Location Lt brachial Position Sitting Respiration 14 Pulse 92 Pulse Source Pulse Oximeter Pulse Oximetry (%) 93 Oxygen Delivery Method Room Air Intake Visit Reasons: ITDD REFILL Intake Note: Patient comes in for intrathecal medication refill. Reports pain 6/10. Allergies No Known Allergies Allergy (Verified 06/11/24 10:28) HPI Comments Details: Celina is back in my office for intrathecal pain pump refill. Last time she changed in nature of the complained and she started to complain on pain in the lower back with radiation into the right lower extremity. She states that she feels sensation of coldness in the projection of her right foot. She reports this pain is constant and interferes with her activities of daily living prevents her to do most of the daily tasks. It sounds to me today more like radiculopathy more than sacroiliac joint problems. She has postlaminectomy syndrome . I offered this patient to consider spinal cord stimulator [employer] to help her neuropathic pain after postlaminectomy syndrome. The brochure of spinal cord stimulator was given and she needs to go for psychological evaluation as well. If she will decide to go for psychological evaluation she will go ahead and give [facility] a telephone call. She is here today to refill her intrathecal pain pump the refill description is as below.. Prior: She is also here for follow-up after a CT scan of the bony pelvis. She exhibits signs of bilateral sacroiliitis. Mostly her symptoms are on the right with Malik test positive on the right Gaenslen test positive on the right and 14 finger test is positive on the right. She reports today pain 7 of 10. She reports moderate pain relief when she administers the PTM dose to herself. She reports that the pain relief lasts 1-2 hours until the only numbness lasts. I will increase the doses of the medications today with PTM dose increase from 45 micro g 250 micro g and continuous dose stays the same as 80 micro g of fentanyl. This will increase corresponding doses of the bupivacaine as well. I offered her to perform bilateral therapeutic sacroiliac joint injection under anesthesia. The patient agreed to go for the procedure only under anesthesia. Deep sedation is possible for this patient. [facility] Medical History (Updated 02/13/24 @ 15:15 by Cal Poole MD) Anxiety and depression Adjustment disorder with mixed anxiety and depressed mood Left foot pain Chronic pain syndrome CRPS (complex regional pain syndrome) type I Failed back syndrome, 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 Surgical History (Updated 05/11/22 @ 06:10 by Ivett Mata RN) History of adenoidectomy Previous section Tubal ligation status History of back surgery H/O hand surgery H/O heart surgery S/P tonsillectomy Social History Patient Tobacco Use Status: Current someday Tobacco user Tobacco use type: Cigarette Cigarettes Per Day: 3 Years Smoked: 10 Review of Systems Const All systems reviewed & are unremarkable except as noted in HPI and below ENT Reports Normal hearing present Neuro Reports Normal hearing present and Denies Sensory deficit (Neuro) Physical Exam Vital Signs: Last Vital Signs Pulse 92 06/11/24 10:13 Resp 14 06/11/24 10:13 BP 82/54 L 06/11/24 10:13 Pulse Ox 93 06/11/24 10:13 Oxygen Delivery Method Room Air 06/11/24 10:13 BMI result Body Mass Index 28.8 Const General: cooperative, comfortable and no acute distress Nutritional Appearance: average body habitus Limitations: no limitations HEENT Head: Yes normal to inspection, Yes normocephalic and Yes atraumatic Ears: hearing grossly normal bilaterally Face and sinus: Yes normal facial exam and Yes face symmetric Mouth: moist mucous membranes Eyes General: appearance normal, both eyes and all related structures Visual Syed: normal visual syed by confrontation Pupils: Equal, round and reactive pupils present EOM: EOMs intact bilaterally Neck Neck: Yes normal visual inspection, Yes no lymphadenopathy, Yes supple, No anterior neck swelling and Yes no JVD Resp Effort & Inspection: normal respiratory effort, able to speak in complete sentences, no audible wheezes, no cough, no respiratory distress and symmetric chest movement Cardio Jugular venous distension: no JVD GI Inspection: Yes normal to inspection General: Yes no CVA tenderness Back/Spine/Pelvis Other: Malik test and Gaenslen test are positive on the right. Fourteen finger test is positive on the right. Back: no CVA tenderness Cervical Spine: cervical ROM normal, cervical muscular tenderness, pain with cervical ROM and No Cervical spine tenderness Thoracic/Lumbar Spine: thoracic and lumbar spine normal to inspection, Thoracic/lumbar spine scar(s), Lasegue's sign negative, straight leg raise negative bilaterally, pain with thoraco-lumbar ROM, paraspinal muscle tenderness, thoraco-lumbar ROM limited, thoraco-lumbar spasm, No thoracic spinal tenderness and No lumbar spinal tenderness Pelvis: buttock tenderness on the left Sacroiliac joints: bilaterally tender to palpation Skin General skin exam: no rashes or lesions noted Neuro Cranial nerves: Yes Equal, round and reactive pupils present and Yes Normal hearing present Cognition (Neuro): normal cognition Sensory Exam: No Sensory deficit (Neuro) Results Reviewed Results Reviewed: XRAY LUMBAR SPINE 2020 FINDINGS: The patient is status post posterior spinal fusion L5-S1 with bilateral posterior spinal rods. Pedicle screws and discarded where at the L5-S1. The patient is also status post kyphoplasty / vertebroplasty at T11 with mild residual anterior wedging are well maintained. Otherwise, vertebral body heights are well maintained. No acute fracture or bone lesion is identified. There is severe disc space narrowing at the L4-5 level. The rest of the disc spaces are well maintained. Normal alignment. No spondylolysis or spondylolisthesis. Assessment & Plan Assessment & Plan (1) Chronic pain syndrome: Code(s): G89.4 - Chronic pain syndrome Category: Medical (2) Failed back syndrome, lumbar: Code(s): M96.1 - Postlaminectomy syndrome, not elsewhere classified Category: Medical (3) Spondylosis of lumbar region without myelopathy or radiculopathy: Code(s): M47.816 - Spondylosis without myelopathy or radiculopathy, lumbar region Category: Medical (4) CRPS (complex regional pain syndrome) type I: Code(s): G90.50 - Complex regional pain syndrome I, unspecified Category: Medical (5) Muscle spasm of back: Code(s): M62.830 - Muscle spasm of back Category: Medical (6) Adjustment disorder with mixed anxiety and depressed mood: Code(s): F43.23 - Adjustment disorder with mixed anxiety and depressed mood Category: Medical (7) Pain of both sacroiliac joints: Code(s): M53.3 - Sacrococcygeal disorders, not elsewhere classified Category: Medical (8) Sacroiliitis: Code(s): M46.1 - Sacroiliitis, not elsewhere classified Category: Medical (9) Postlaminectomy syndrome: Code(s): M96.1 - Postlaminectomy syndrome, not elsewhere classified Category: Medical (10) Radiculopathy, lumbar region: Code(s): M54.16 - Radiculopathy, lumbar region Category: Medical Plan: She reports adequate pain control from the pain pump short of the pain in the right lower extremity with sensation of coldness in the right foot. I offered this patient to consider spinal cord stimulator to treat this pain. She decided to go for this we will schedule her for psychological evaluation. After that we go for a trial for [employer]. Plan Intrathecal pump refill. THE PATIENT CAME TODAY to the office FOR THE CHANGE OF THE MEDICATION IN her PAIN PUMP. The name and date of were verified and informed consent was obtained for the procedure. ?The pump was interrogated and the residual amount of fluid was found to be 2.6 mL. SHE WAS POSITIONED prone on the bed AND THE AREA OF THE INTRATHECAL PUMP WAS PREPPED WITH CHLORAPREP. The fenestrated drape was sterilely applied over the area of the pump. Sterile gloves were worn and of the aspiration system was assembled containing 2 in 22 gauge noncoring needle, the needle was connected to extension tubing which was connected to the 20 cc sterile syringe. The pain pump was palpated under the skin in the patient's right buttock area. The needle was inserted through the skin and the central plug of the pain pump and fluid was aspirated. The clear fluid was going into the syringe the total amount of the fluid was 3.2 mL .. After that a new batch? of medication was obtained which was containing Fentanyl in concentration 1000 micro g/ml and bupivacaine 40 mg per ml plus clonidine 600 mcg per ml. The admixture was made in 20 cc syringe prepared by [facility] compound[facility] pharmacy. The syringe was connected to the bacterial filter, and then connected to the extension tubing. After that the medication in the syringe was slowly instilled into the pump with aspirations at 15 and 5 cc willis.? The pump was reprogrammed for the doses of Fentanyl 80 mcg per day with corresponding dose of bupivacaine and clonidine? The patient was given 6 doses of PTM 72 micrograms of fentanyl intrathecally this is increase from 68 micro g which was last dose of this patient she will be able to receive this medication? every 3 hours with maximum 6 activations per 24 hour. Patient reports significant pain relief after application of the PTM doses. Coding Level of Care Code Est Pt Level 3 (19138) Procedure Only Diagnoses Chronic pain syndrome G89.4 Failed back syndrome, lumbar M96.1 Spondylosis of lumbar region without myelopathy or radiculopathy M47.816 CRPS (complex regional pain syndrome) type I G90.50 Muscle spasm of back M62.830 Adjustment disorder with mixed anxiety and depressed mood F43.23 Pain of both sacroiliac joints M53.3 Sacroiliitis M46.1 Postlaminectomy syndrome M96.1 Radiculopathy, lumbar region M54.16
[2024-06-11 10:13] VITALS: BP 82/54; PULSE 92; RESP 14; O2SAT 93; BMI 28.8
== END 2024-06-11 10:32 | disposition home or self-care (01) ==
PROVIDERS: PCP Internal Medicine; Visit Provider Anesthesiology
DX: G89.4 Chronic pain syndrome (principal); M96.1 Postlaminectomy syndrome, not elsewhere classified; M47.816 Spondylosis without myelopathy or radiculopathy, lumbar region; G90.50 Complex regional pain syndrome I, unspecified; Z45.1 Encounter for adjustment and management of infusion pump; M62.830 Muscle spasm of back; M53.3 Sacrococcygeal disorders, not elsewhere classified; M46.1 Sacroiliitis, not elsewhere classified; M54.16 Radiculopathy, lumbar region
CPT/HCPCS: 62370; 99213

== ENCOUNTER → 2024-06-11 10:00 | Outpatient (BNVA) | payer OTHER, SELFPAY | PROVIDERS: PCP Internal Medicine; Visit Provider Anesthesiology | DX: G89.4 Chronic pain syndrome (principal); M96.1 Postlaminectomy syndrome, not elsewhere classified; M47.26 Other spondylosis with radiculopathy, lumbar region; G90.50 Complex regional pain syndrome I, unspecified; M62.830 Muscle spasm of back; M53.3 Sacrococcygeal disorders, not elsewhere classified; M46.1 Sacroiliitis, not elsewhere classified; F43.23 Adjustment disorder with mixed anxiety and depressed mood; Z45.1 Encounter for adjustment and management of infusion pump | CPT/HCPCS: 62370; 99212 ==

== ENCOUNTER 2024-07-15 10:01 | Outpatient (AMB) | payer OTHER, SELFPAY ==
--- NOTE | 2024-07-15 10:02 | A.OFFVIS_ITS ---
Vital Signs 07/15/24 10:30 Height 5 ft 3 in Weight 152 lb BMI 26.9 BP 154/86 H Blood Pressure Location Lt brachial Position Sitting Respiration 17 Pulse 86 Pulse Source Pulse Oximeter Pulse Oximetry (%) 98 Oxygen Delivery Method Room Air Intake Visit Reasons: ITDD Refill Intake Note: Patient comes in for intrathecal medication refill. Reports pain 9/10. Allergies No Known Allergies Allergy (Verified 07/15/24 10:46) HPI Comments Details: Celina is back in my office for intrathecal pain pump refill. She did not present today any complains on pain radiating down the lower extremity. She is reporting here today adequate pain control for her lower back pain. The patient broke her foot and was admitted to another hospital in the area. Today she got discharged and she is wearing protective foot boot. She reports that most of her pain today is coming from the broken ankle. She has an appointment with orthopedic surgery scheduled she was told that she probably will go for surgery. The pain pump refill is as below. We would have to refill her pump on 08/20/2024. It is getting to short in between the refills. However her bupivacaine is at maximum concentration of 40 milligrams/mL impossible to increase the concentration of the fentanyl without reduction of the bupivacaine dose. We will continue as it is, possibility in the future would be to remove bupivacaine from admixture and add some other medications including Prialt, baclofen. Prior: She is also here for follow-up after a CT scan of the bony pelvis. She exhibits signs of bilateral sacroiliitis. Mostly her symptoms are on the right with Malik test positive on the right Gaenslen test positive on the right and 14 finger test is positive on the right. She reports today pain 7 of 10. She reports moderate pain relief when she administers the PTM dose to herself. She reports that the pain relief lasts 1-2 hours until the only numbness lasts. I will increase the doses of the medications today with PTM dose increase from 45 micro g 250 micro g and continuous dose stays the same as 80 micro g of fentanyl. This will increase corresponding doses of the bupivacaine as well. I offered her to perform bilateral therapeutic sacroiliac joint injection under anesthesia. The patient agreed to go for the procedure only under anesthesia. Deep sedation is possible for this patient. FORMERLY [facility], [facility] Medical History (Updated 02/13/24 @ 15:15 by Cal Poole MD) Anxiety and depression Adjustment disorder with mixed anxiety and depressed mood Left foot pain Chronic pain syndrome CRPS (complex regional pain syndrome) type I Failed back syndrome, 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 Surgical History (Updated 05/11/22 @ 06:10 by Ivett Mata RN) History of adenoidectomy Previous section Tubal ligation status History of back surgery H/O hand surgery H/O heart surgery S/P tonsillectomy Social History Patient Tobacco Use Status: Current someday Tobacco user Tobacco use type: Cigarette Cigarettes Per Day: 3 Years Smoked: 10 Review of Systems Const All systems reviewed & are unremarkable except as noted in HPI and below ENT Reports Normal hearing present Neuro Reports Normal hearing present and Denies Sensory deficit (Neuro) Physical Exam Vital Signs: Last Vital Signs Pulse 86 07/15/24 10:30 Resp 17 07/15/24 10:30 BP 154/86 H 07/15/24 10:30 Pulse Ox 98 07/15/24 10:30 Oxygen Delivery Method Room Air 07/15/24 10:30 BMI result Body Mass Index 26.9 Const General: cooperative, comfortable and no acute distress Nutritional Appearance: average body habitus Limitations: no limitations HEENT Head: Yes normal to inspection, Yes normocephalic and Yes atraumatic Ears: hearing grossly normal bilaterally Face and sinus: Yes normal facial exam and Yes face symmetric Mouth: moist mucous membranes Eyes General: appearance normal, both eyes and all related structures Visual Syed: normal visual syed by confrontation Pupils: Equal, round and reactive pupils present EOM: EOMs intact bilaterally Neck Neck: Yes normal visual inspection, Yes no lymphadenopathy, Yes supple, No anterior neck swelling and Yes no JVD Resp Effort & Inspection: normal respiratory effort, able to speak in complete sentences, no audible wheezes, no cough, no respiratory distress and symmetric chest movement Cardio Jugular venous distension: no JVD GI Inspection: Yes normal to inspection General: Yes no CVA tenderness Back/Spine/Pelvis Other: Malik test and Gaenslen test are positive on the right. Fourteen finger test is positive on the right. Back: no CVA tenderness Cervical Spine: cervical ROM normal, cervical muscular tenderness, pain with cervical ROM and No Cervical spine tenderness Thoracic/Lumbar Spine: thoracic and lumbar spine normal to inspection, Thoracic/lumbar spine scar(s), Lasegue's sign negative, straight leg raise negative bilaterally, pain with thoraco-lumbar ROM, paraspinal muscle tenderness, thoraco-lumbar ROM limited, thoraco-lumbar spasm, No thoracic spinal tenderness and No lumbar spinal tenderness Pelvis: buttock tenderness on the left Sacroiliac joints: bilaterally tender to palpation Skin General skin exam: no rashes or lesions noted Neuro Cranial nerves: Yes Equal, round and reactive pupils present and Yes Normal hearing present Cognition (Neuro): normal cognition Sensory Exam: No Sensory deficit (Neuro) Assessment & Plan Assessment & Plan (1) Chronic pain syndrome: Code(s): G89.4 - Chronic pain syndrome Category: Medical (2) Failed back syndrome, lumbar: Code(s): M96.1 - Postlaminectomy syndrome, not elsewhere classified Category: Medical (3) Spondylosis of lumbar region without myelopathy or radiculopathy: Code(s): M47.816 - Spondylosis without myelopathy or radiculopathy, lumbar region Category: Medical (4) CRPS (complex regional pain syndrome) type I: Code(s): G90.50 - Complex regional pain syndrome I, unspecified Category: Medical (5) Muscle spasm of back: Code(s): M62.830 - Muscle spasm of back Category: Medical (6) Adjustment disorder with mixed anxiety and depressed mood: Code(s): F43.23 - Adjustment disorder with mixed anxiety and depressed mood Category: Medical (7) Pain of both sacroiliac joints: Code(s): M53.3 - Sacrococcygeal disorders, not elsewhere classified Category: Medical (8) Sacroiliitis: Code(s): M46.1 - Sacroiliitis, not elsewhere classified Category: Medical (9) Postlaminectomy syndrome: Code(s): M96.1 - Postlaminectomy syndrome, not elsewhere classified Category: Medical (10) Radiculopathy, lumbar region: Code(s): M54.16 - Radiculopathy, lumbar region Category: Medical Plan: She reports adequate pain control from the pain pump short of the pain in the right lower extremity with sensation of coldness in the right foot. In the past I offered this patient to consider spinal cord stimulator to treat this pain. Right now she had her ankle fractured and she is going for possible surgery. Plan Intrathecal pump refill. THE PATIENT CAME TODAY to the office FOR THE CHANGE OF THE MEDICATION IN her PAIN PUMP. The name and date of were verified and informed consent was obtained for the procedure. ?The pump was interrogated and the residual amount of fluid was found to be 2.6 mL. SHE WAS POSITIONED prone on the bed AND THE AREA OF THE INTRATHECAL PUMP WAS PREPPED WITH CHLORAPREP. The fenestrated drape was sterilely applied over the area of the pump. Sterile gloves were worn and of the aspiration system was assembled containing 2 in 22 gauge noncoring needle, the needle was connected to extension tubing which was connected to the 20 cc sterile syringe. The pain pump was palpated under the skin in the patient's right buttock area. The needle was inserted through the skin and the central plug of the pain pump and fluid was aspirated. The clear fluid was going into the syringe the total amount of the fluid was 3.5 mL .. After that a new batch? of medication was obtained which was containing Fentanyl in concentration 1000 micro g/ml and bupivacaine 40 mg per ml plus clonidine 600 mcg per ml. The admixture was made in 20 cc syringe prepared by [facility] compounding pharmacy. The syringe was connected to the bacterial filter, and then connected to the extension tubing. After that the medication in the syringe was slowly instilled into the pump with aspirations at 15 and 5 cc willis.? The pump was reprogrammed for the doses of Fentanyl 80 mcg per day with corresponding dose of bupivacaine and clonidine? The patient was given 6 doses of PTM 72 micrograms of fentanyl intrathecally this is increase from 68 micro g which was last dose of this patient she will be able to receive this medication? every 3 hours with maximum 6 activations per 24 hour. Patient reports significant pain relief after application of the PTM doses. Coding Level of Care Code Est Pt Level 3 (28174) Procedure Only Diagnoses Chronic pain syndrome G89.4 Failed back syndrome, lumbar M96.1 Spondylosis of lumbar region without myelopathy or radiculopathy M47.816 CRPS (complex regional pain syndrome) type I G90.50 Muscle spasm of back M62.830 Adjustment disorder with mixed anxiety and depressed mood F43.23 Pain of both sacroiliac joints M53.3 Sacroiliitis M46.1 Postlaminectomy syndrome M96.1 Radiculopathy, lumbar region M54.16
[2024-07-15 10:30] VITALS: BP 154/86; PULSE 86; RESP 17; O2SAT 98; BMI 26.9
== END 2024-07-15 10:30 | disposition home or self-care (01) ==
PROVIDERS: PCP Internal Medicine; Visit Provider Anesthesiology
DX: G89.4 Chronic pain syndrome (principal); M96.1 Postlaminectomy syndrome, not elsewhere classified; M47.816 Spondylosis without myelopathy or radiculopathy, lumbar region; G90.50 Complex regional pain syndrome I, unspecified; Z45.1 Encounter for adjustment and management of infusion pump
CPT/HCPCS: 62370; 99213

== ENCOUNTER → 2024-07-15 10:01 | Outpatient (BNVA) | payer OTHER, SELFPAY | PROVIDERS: PCP Internal Medicine; Visit Provider Anesthesiology | DX: Z45.1 Encounter for adjustment and management of infusion pump (principal); M96.1 Postlaminectomy syndrome, not elsewhere classified; M53.3 Sacrococcygeal disorders, not elsewhere classified; M46.1 Sacroiliitis, not elsewhere classified; G89.4 Chronic pain syndrome; G90.50 Complex regional pain syndrome I, unspecified; M47.816 Spondylosis without myelopathy or radiculopathy, lumbar region; M54.16 Radiculopathy, lumbar region; M62.830 Muscle spasm of back; F43.23 Adjustment disorder with mixed anxiety and depressed mood | CPT/HCPCS: 62370; 99212 ==

== ENCOUNTER 2024-08-20 10:18 | Outpatient (AMB) | payer OTHER, SELFPAY ==
[2024-08-20 10:49] VITALS: BP 77/55; PULSE 93; O2SAT 99; BMI 27.5
--- NOTE | 2024-08-20 10:49 | A.OFFVIS_ITS ---
Vital Signs 08/20/24 10:49 Height 5 ft 3 in Weight 155 lb BMI 27.5 BP 77/55 L Blood Pressure Location Lt brachial Position Sitting Pulse 93 Pulse Source Pulse Oximeter Pulse Oximetry (%) 99 Oxygen Delivery Method Room Air Intake Visit Reasons: ITDD Refill Allergies No Known Allergies Allergy (Verified 08/20/24 10:50) Medication List - Last Reconciled 08/20/24 by Jacquelin Hung, NEEDLE SETTER albuterol sulfate 90 mcg/actuation 1 - 2 puffs inhalation Q4-6H PRN bupropion HCl XL 300 mg PO DAILY cephalexin 1,000 mg (2 x 500 mg) PO Q8H 16 days clonidine HCl 0.1 mg PO BID PRN famotidine 40 mg PO DAILY fexofenadine (Allergy Relief (fexofenadine)) 180 mg PO DAILY fluticasone propionate 50 mcg/actuation 1 spray intranasal DAILY gabapentin mg PO lorazepam 0.5 mg PO BID PRN meloxicam 15 mg PO DAILY PRN 30 days methocarbamol 750 mg PO BID 30 days mirtazapine 7.5 mg PO BEDTIME naloxone 4 mg/actuation (Narcan) 4 mg intranasal Q2M PRN omeprazole 20 mg PO QAM oxybutynin chloride ER 5 mg PO DAILY pregabalin 200 mg PO BID 30 days psyllium husk (Fiber (psyllium husk)) 0.52 grams PO TID PRN 30 days quetiapine 800 mg PO BEDTIME ramelteon 8 mg PO DAILY rivaroxaban (Xarelto) 10 mg PO DAILY sennosides-docusate sodium 8.6-50 mg 2 tab-caps (2 x 8.6-50 mg) PO BEDTIME PRN 30 days sertraline 50 mg PO DAILY sertraline mg PO trazodone 200 mg PO BEDTIME zaleplon 10 mg PO BEDTIME PRN HPI Comments Details: Celina is back in my office for intrathecal pain pump refill. She at the end of June fell between 2 ladders and broke her left foot. She is currently in the cast. She complains on pain in the foot. She stated that her pain pump does not help the pain in the foot. We agreed today that will not change any dosage of the opioid medications. Her pain pump is not designed to treat acute fracture pains. She will go to the orthopedic surgeon for cast removal, if she does not require surgery and continued to have pain in the left lower extremity we can offer her sprint PNS neuromodulation, cure on X neuromodulation or spinal cord stimulation. Prior: She is also here for follow-up after a CT scan of the bony pelvis. She exhibits signs of bilateral sacroiliitis. Mostly her symptoms are on the right with Malik test positive on the right Gaenslen test positive on the right and 14 finger test is positive on the right. She reports today pain 7 of 10. She reports moderate pain relief when she administers the PTM dose to herself. She reports that the pain relief lasts 1-2 hours until the only numbness lasts. [facility] Medical History (Updated 02/13/24 @ 15:15 by Cal Poole MD) Anxiety and depression Adjustment disorder with mixed anxiety and depressed mood Left foot pain Chronic pain syndrome CRPS (complex regional pain syndrome) type I Failed back syndrome, 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 Surgical History (Updated 05/11/22 @ 06:10 by Ivett Mata RN) History of adenoidectomy Previous section Tubal ligation status History of back surgery H/O hand surgery H/O heart surgery S/P tonsillectomy Social History Patient Tobacco Use Status: Current someday Tobacco user Tobacco use type: Cigarette Cigarettes Per Day: 3 Years Smoked: 10 Review of Systems Const All systems reviewed & are unremarkable except as noted in HPI and below and Other ENT Reports Normal hearing present Neuro Reports Normal hearing present and Denies Sensory deficit (Neuro) Physical Exam Vital Signs: Last Vital Signs Pulse 93 08/20/24 10:49 BP 77/55 L 08/20/24 10:49 Pulse Ox 99 08/20/24 10:49 Oxygen Delivery Method Room Air 08/20/24 10:49 BMI result Body Mass Index 27.5 Const General: cooperative, comfortable and no acute distress Nutritional Appearance: average body habitus Limitations: no limitations HEENT Head: Yes normal to inspection, Yes normocephalic and Yes atraumatic Ears: hearing grossly normal bilaterally Face and sinus: Yes normal facial exam and Yes face symmetric Mouth: moist mucous membranes Eyes General: appearance normal, both eyes and all related structures Visual Syed: normal visual syed by confrontation Pupils: Equal, round and reactive pupils present EOM: EOMs intact bilaterally Neck Neck: Yes normal visual inspection, Yes no lymphadenopathy, Yes supple, No anterior neck swelling and Yes no JVD Resp Effort & Inspection: normal respiratory effort, able to speak in complete sentences, no audible wheezes, no cough, no respiratory distress and symmetric chest movement Cardio Jugular venous distension: no JVD GI Inspection: Yes normal to inspection General: Yes no CVA tenderness Back/Spine/Pelvis Other: Malik test and Gaenslen test are positive on the right. Fourteen finger test is positive on the right. Back: no CVA tenderness Cervical Spine: cervical ROM normal, cervical muscular tenderness, pain with cervical ROM and No Cervical spine tenderness Thoracic/Lumbar Spine: thoracic and lumbar spine normal to inspection, Thoracic/lumbar spine scar(s), Lasegue's sign negative, straight leg raise negative bilaterally, pain with thoraco-lumbar ROM, paraspinal muscle tenderness, thoraco-lumbar ROM limited, thoraco-lumbar spasm, No thoracic spinal tenderness and No lumbar spinal tenderness Pelvis: buttock tenderness on the left Sacroiliac joints: bilaterally tender to palpation Skin General skin exam: no rashes or lesions noted Neuro Cranial nerves: Yes Equal, round and reactive pupils present and Yes Normal hearing present Cognition (Neuro): normal cognition Sensory Exam: No Sensory deficit (Neuro) Assessment & Plan Assessment & Plan (1) Chronic pain syndrome: Code(s): G89.4 - Chronic pain syndrome Category: Medical (2) Failed back syndrome, lumbar: Code(s): M96.1 - Postlaminectomy syndrome, not elsewhere classified Category: Medical (3) Spondylosis of lumbar region without myelopathy or radiculopathy: Code(s): M47.816 - Spondylosis without myelopathy or radiculopathy, lumbar region Category: Medical (4) CRPS (complex regional pain syndrome) type I: Code(s): G90.50 - Complex regional pain syndrome I, unspecified Category: Medical (5) Muscle spasm of back: Code(s): M62.830 - Muscle spasm of back Category: Medical (6) Adjustment disorder with mixed anxiety and depressed mood: Code(s): F43.23 - Adjustment disorder with mixed anxiety and depressed mood Category: Medical (7) Pain of both sacroiliac joints: Code(s): M53.3 - Sacrococcygeal disorders, not elsewhere classified Category: Medical (8) Sacroiliitis: Code(s): M46.1 - Sacroiliitis, not elsewhere classified Category: Medical (9) Postlaminectomy syndrome: Code(s): M96.1 - Postlaminectomy syndrome, not elsewhere classified Category: Medical (10) Radiculopathy, lumbar region: Code(s): M54.16 - Radiculopathy, lumbar region Category: Medical Plan: She will see me in 36 days for the yet another pain pump refill. I decided to keep the concentrations of the medications as they were before. We need to find out whether or not she will have a surgery on her foot. If the surgery is not necessary neuromodulation can not be employed such as sprint PNS or cure on X PNS instead of escalating the doses of the opioid medications. Plan Intrathecal pump refill. THE PATIENT CAME TODAY to the office FOR THE CHANGE OF THE MEDICATION IN her PAIN PUMP. The name and date of were verified and informed consent was obtained for the procedure. ?The pump was interrogated and the residual amount of fluid was found to be 1.1 mL. SHE WAS POSITIONED prone on the bed AND THE AREA OF THE INTRATHECAL PUMP WAS PREPPED WITH CHLORAPREP. The fenestrated drape was sterilely applied over the area of the pump. Sterile gloves were worn and of the aspiration system was assembled containing 2 in 22 gauge noncoring needle, the needle was connected to extension tubing which was connected to the 20 cc sterile syringe. The pain pump was palpated under the skin in the patient's right buttock area. The needle was inserted through the skin and the central plug of the pain pump and fluid was aspirated. The clear fluid was going into the syringe the total amount of the f luid was 2.0 mL .. After that a new batch? of medication was obtained which was containing Fentanyl in concentration 1000 micro g/ml and bupivacaine 40 mg per ml plus clonidine 600 mcg per ml. The admixture was made in 20 cc syringe prepared by [facility] compounding pharmacy. The syringe was connected to the bacterial filter, and then connected to the extension tubing. After that the medication in the syringe was slowly instilled into the pump with aspirations at 15 and 5 cc willis.? The pump was reprogrammed for the doses of Fentanyl 80 mcg per day with corresponding dose of bupivacaine and clonidine? The patient was given 6 doses of PTM 72 micrograms of fentanyl intrathecally this is increase from 68 micro g which was last dose of this patient she will be able to receive this medication? every 3 hours with maximum 6 activations per 24 hour. Coding Level of Care Code Est Pt Level 3 (92986) Procedure Only Diagnoses Chronic pain syndrome G89.4 Failed back syndrome, lumbar M96.1 Spondylosis of lumbar region without myelopathy or radiculopathy M47.816 CRPS (complex regional pain syndrome) type I G90.50 Muscle spasm of back M62.830 Adjustment disorder with mixed anxiety and depressed mood F43.23 Pain of both sacroiliac joints M53.3 Sacroiliitis M46.1 Postlaminectomy syndrome M96.1 Radiculopathy, lumbar region M54.16
== END 2024-08-20 11:24 | disposition home or self-care (01) ==
PROVIDERS: PCP Internal Medicine; Visit Provider Anesthesiology
DX: G89.4 Chronic pain syndrome (principal); M96.1 Postlaminectomy syndrome, not elsewhere classified; M47.816 Spondylosis without myelopathy or radiculopathy, lumbar region; G90.50 Complex regional pain syndrome I, unspecified; Z45.1 Encounter for adjustment and management of infusion pump
CPT/HCPCS: 62370; 99213

== ENCOUNTER → 2024-08-20 10:18 | Outpatient (BNVA) | payer OTHER, SELFPAY | PROVIDERS: PCP Internal Medicine; Visit Provider Anesthesiology | DX: Z45.89 Encounter for adjustment and management of other implanted devices (principal); F11.20 Opioid dependence, uncomplicated; M96.1 Postlaminectomy syndrome, not elsewhere classified; M47.816 Spondylosis without myelopathy or radiculopathy, lumbar region; M62.830 Muscle spasm of back; M53.3 Sacrococcygeal disorders, not elsewhere classified; M46.1 Sacroiliitis, not elsewhere classified; M54.16 Radiculopathy, lumbar region; G90.50 Complex regional pain syndrome I, unspecified; G89.4 Chronic pain syndrome; F43.23 Adjustment disorder with mixed anxiety and depressed mood | CPT/HCPCS: 62370; 99212 ==

== ENCOUNTER → 2024-09-23 10:07 | Outpatient (BNVA) | payer OTHER, SELFPAY | PROVIDERS: PCP Internal Medicine; Visit Provider Anesthesiology | DX: Z45.89 Encounter for adjustment and management of other implanted devices (principal); M96.1 Postlaminectomy syndrome, not elsewhere classified; M47.816 Spondylosis without myelopathy or radiculopathy, lumbar region; M62.830 Muscle spasm of back; M53.3 Sacrococcygeal disorders, not elsewhere classified; M46.1 Sacroiliitis, not elsewhere classified; M54.16 Radiculopathy, lumbar region; G90.50 Complex regional pain syndrome I, unspecified; F43.23 Adjustment disorder with mixed anxiety and depressed mood; G89.4 Chronic pain syndrome | CPT/HCPCS: 62370; 99212 ==

== ENCOUNTER 2024-10-22 09:58 | Outpatient (AMB) | payer OTHER, SELFPAY ==
--- NOTE | 2024-10-22 10:00 | A.OFFVIS_ITS ---
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 She continues to were boots on bilateral ankles due to fractures. She reports that she takes Motrin for pain. I recommended her to increase the dose and take 2 pills a day up to 3 times, I recommended her to take this medications on the clock and not p.r.n.. She requested me to increase the dosage of her medication as well. The new concentration are obtained today and because of the new concentration the continuous dose of fentanyl need to be increased from 85- to 96 micro g a day. Therefore it is already 20% increase dosage. I explained to the patient that I can not increase it further. The pump is refilled as below. I will schedule her for new pump refill on 12/24/2024. See pump refill as below. Prior: She is also here for follow-up after a CT scan of the bony pelvis. She exhibits signs of bilateral sacroiliitis. Mostly her symptoms are on the right with Malik test positive on the right Gaenslen test positive on the right and 14 finger test is positive on the right. She reports today pain 7 of 10. She reports moderate pain relief when she administers the PTM dose to herself. She reports that the pain relief lasts 1-2 hours until the only numbness lasts. [facility] Medical History (Updated 02/13/24 @ 15:15 by Cal Poole MD) Anxiety and depression Adjustment disorder with mixed anxiety and depressed mood Left foot pain Chronic pain syndrome CRPS (complex regional pain syndrome) type I Failed back syndrome, 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 Surgical History (Updated 05/11/22 @ 06:10 by Ivett Mata RN) History of adenoidectomy Previous section Tubal ligation status History of back surgery H/O hand surgery H/O heart surgery S/P tonsillectomy Social History Patient Tobacco Use Status: Current someday Tobacco user Tobacco use type: Cigarette Cigarettes Per Day: 3 Years Smoked: 10 Review of Systems Const All systems reviewed & are unremarkable except as noted in HPI and below ENT Reports Normal hearing present Neuro Reports Normal hearing present and Denies Sensory deficit (Neuro) Physical Exam Vital Signs: Last Vital Signs Pulse 87 10/22/24 10:21 BP 109/71 10/22/24 10:21 Pulse Ox 97 10/22/24 10:21 Oxygen Delivery Method Room Air 10/22/24 10:21 BMI result Body Mass Index 26.4 Const General: cooperative, comfortable and no acute distress Nutritional Appearance: average body habitus Limitations: no limitations HEENT Head: Yes normal to inspection, Yes normocephalic and Yes atraumatic Ears: hearing grossly normal bilaterally Face and sinus: Yes normal facial exam and Yes face symmetric Mouth: moist mucous membranes Eyes General: appearance normal, both eyes and all related structures Visual Syed: normal visual syed by confrontation Pupils: Equal, round and reactive pupils present EOM: EOMs intact bilaterally Neck Neck: Yes normal visual inspection, Yes no lymphadenopathy, Yes supple, No anterior neck swelling and Yes no JVD Resp Effort & Inspection: normal respiratory effort, able to speak in complete sentences, no audible wheezes, no cough, no respiratory distress and symmetric chest movement Cardio Jugular venous distension: no JVD GI Inspection: Yes normal to inspection General: Yes no CVA tenderness Back/Spine/Pelvis Other: Malik test and Gaenslen test are positive on the right. Fourteen finger test is positive on the right. Back: no CVA tenderness Cervical Spine: cervical ROM normal, cervical muscular tenderness, pain with cervical ROM and No Cervical spine tenderness Thoracic/Lumbar Spine: thoracic and lumbar spine normal to inspection, Thoracic/lumbar spine scar(s), Lasegue's sign negative, straight leg raise negative bilaterally, pain with thoraco-lumbar ROM, paraspinal muscle tenderness, thoraco-lumbar ROM limited, thoraco-lumbar spasm, No thoracic spinal tenderness and No lumbar spinal tenderness Pelvis: buttock tenderness on the left Sacroiliac joints: bilaterally tender to palpation Skin General skin exam: no rashes or lesions noted Neuro Cranial nerves: Yes Equal, round and reactive pupils present and Yes Normal hearing present Cognition (Neuro): normal cognition Sensory Exam: No Sensory deficit (Neuro) Assessment & Plan Assessment & Plan (1) Chronic pain syndrome: Code(s): G89.4 - Chronic pain syndrome Category: Medical (2) Failed back syndrome, lumbar: Code(s): M96.1 - Postlaminectomy syndrome, not elsewhere classified Category: Medical (3) Spondylosis of lumbar region without myelopathy or radiculopathy: Code(s): M47.816 - Spondylosis without myelopathy or radiculopathy, lumbar region Category: Medical (4) CRPS (complex regional pain syndrome) type I: Code(s): G90.50 - Complex regional pain syndrome I, unspecified Category: Medical (5) Muscle spasm of back: Code(s): M62.830 - Muscle spasm of back Category: Medical (6) Adjustment disorder with mixed anxiety and depressed mood: Code(s): F43.23 - Adjustment disorder with mixed anxiety and depressed mood Category: Medical (7) Pain of both sacroiliac joints: Code(s): M53.3 - Sacrococcygeal disorders, not elsewhere classified Category: Medical (8) Sacroiliitis: Code(s): M46.1 - Sacroiliitis, not elsewhere classified Category: Medical (9) Postlaminectomy syndrome: Code(s): M96.1 - Postlaminectomy syndrome, not elsewhere classified Category: Medical (10) Radiculopathy, lumbar region: Code(s): M54.16 - Radiculopathy, lumbar region Category: Medical Plan: Next appointment will be scheduled in 1 month on or before 12/24/2024 new concentration of medications was obtained as below. Plan Intrathecal pump refill. THE PATIENT CAME TODAY to the office FOR THE CHANGE OF THE MEDICATION IN her PAIN PUMP. The name and date of were verified and informed consent was obtained for the procedure. ?The pump was interrogated and the residual amount of fluid was found to be 2.5 mL. SHE WAS POSITIONED prone on the bed AND THE AREA OF THE INTRATHECAL PUMP WAS PREPPED WITH CHLORAPREP. The fenestrated drape was sterilely applied over the area of the pump. Sterile gloves were worn and of the aspiration system was assembled containing 2 in 22 gauge noncoring needle, the needle was connected to extension tubing which was connected to the 20 cc sterile syringe. The pain pump was palpated under the skin in the patient's right buttock area. The needle was inserted through the skin and the central plug of the pain pump and fluid was aspirated. The clear fluid was going into the syringe the total amount of the fluid was 4.0 mL .. After that a new batch? of medication was obtained which was containing Fentanyl in concentration 2000 micro g/ml and bupivacaine 40 mg per ml plus clonidine 1000mcg per ml. The admixture was made in 20 cc syringe prepared by [facility] compounding pharmacy. The syringe was connected to the bacterial filter, and then connected to the extension tubing. After that the medication in the syringe was slowly instilled into the pump with aspirations at 15 and 5 cc willis.? The pump was reprogrammed for the doses of Fentanyl 96 mcg per day with corresponding dose of bupivacaine and clonidine? The patient was given 6 doses of PTM Every 3 hours 85 micrograms of fentanyl intrathecally . Coding Level of Care Code Est Pt Level 3 (55700) Procedure Only Diagnoses Chronic pain syndrome G89.4 Failed back syndrome, lumbar M96.1 Spondylosis of lumbar region without myelopathy or radiculopathy M47.816 CRPS (complex regional pain syndrome) type I G90.50 Muscle spasm of back M62.830 Adjustment disorder with mixed anxiety and depressed mood F43.23 Pain of both sacroiliac joints M53.3 Sacroiliitis M46.1 Postlaminectomy syndrome M96.1 Radiculopathy, lumbar region M54.16
[2024-10-22 10:21] VITALS: BP 109/71; PULSE 87; O2SAT 97; BMI 26.4
--- OUTSIDE RECORDS SUMMARY | 2024-10-22 11:38 | XMS_ITS | Clinical Summary ---
Author Organization [facility] Address [address] [place] [address] Care Team Providers Care Sales Marketing Name Role Phone Tigre Tate MD Primary Care Provider [phone] Social History Tobacco Use Types Packs/Day Years Used Date Smoking Tobacco: Never Assessed Comments Unknown Sex and Gender Information Value Date Recorded Sex Assigned at Not on file Legal Sex Female 2:24 PM EST Gender Identity Not on file Sexual Orientation Not on file Plan of Treatment Health Maintenance Due Date Last Done Comments Breast Cancer Screening 1969 DTaP,Tdap,and Td Vaccines (1 - Tdap) 01/13/1988 Hepatitis B Vaccines (1 of 3 - 19+ 3-dose series) 01/13/1988 Cervical Cancer Screening: P ap Smear 1990 Pneumococcal Vaccine: 50+ Ye ars (1 of 1 - PCV) 2019 Zoster Vaccines (1 of 2) 2019 COVID-19 Vaccine (2023-2 5 season) 2024 Influenza Vaccine (#1) 2024 HIB Vaccines Aged Out No longer eligi ble based on patient's age to complete this topic HPV Vaccines Aged Out No longer eligi ble based on patient's age to complete this topic Hepatitis A Vaccines Aged Out No long er eligible based on patient's age to complete this topic IPV Vaccines Aged Out No longer eligi ble based on patient's age to complete this topic MMR Vaccines Aged Out No longer eligi ble based on patient's age to complete this topic Meningococcal ACWY Vaccine Aged Out N o longer eligible based on patient's age to complete this topic Meningococcal B Vacine Aged Out No lo nger eligible based on patient's age to complete this topic Pneumococcal Vaccine: Pediat rics (0 to 5 Years) and At-Risk Patients (6 to 64 Years) Aged Out No longer eligible b ased on patient's age to complete this topic RSV Immunization Patients Un [place] 20 months Aged Out No longer eligible b ased on patient's age to complete this topic Varicella Vaccines Aged Out No longer eligible based on patient's age to complete this topic Care Teams Sales Marketing Relationship Specialty Start Date End Date Tigre Tate MD [address] [place] [address] [address] [place], [place] PCP - General Geriatric Medicine 04/21/19
--- OUTSIDE RECORDS SUMMARY | 2024-10-22 11:38 | XMS_ITS | Clinical Summary ---
Author Organization [facility] Address [address] [place] [id number] Phone Care Team Providers Care Crisis Manager Name Role Phone Tigre Tate MD Primary Care Provider [phone] Allergies No known active allergies Medications amitriptyline (ELAVIL) 10 MG tablet Take 1 tablet by mouth 3 (three) times a day 7 Active buPROPion XL (WELLBUTRIN XL) 150 MG 24 hr tablet Take 150 mg by mouth daily Active famotidine (PEPCID) 40 MG tablet Take 40 mg by mouth daily Active QUEtiapine (SEROquel) 400 MG tablet Take 2 tablets by mouth at bed time 7 Active sertraline (ZOLOFT) 50 MG tablet Take 1 tablet by mouth daily 9 Active albuterol HFA (PROVENTIL HFA;VENTOLIN HFA) 108 (90 Base) MCG/ACT inhaler INHALE 1 TO 2 PUFFS BY MOUTH EVERY 4 TO 6 HOURS NEEDED 1 Active Allergy Relief 180 MG tablet Take 180 mg by mouth 1 (one) time each day 1 Active gabapentin (NEURONTIN) 300 MG capsule Take 900 mg by mouth 3 times a day 1 Active LORazepam (ATIVAN) 0.5 MG tablet Take 0.5 mg by mouth 2 (two) times a day if needed 1 Active Narcan 4 MG/0.1ML liquid 1 Active traZODone (DESYREL) 100 MG tablet TAKE 1/2 TO 2 TABLETS BY MOUTH AT BEDTIME NEEDED FOR SLEEP 1 Active Stimulant Laxative 8.6-50 MG per tablet Take 1 tablet by mouth 2 (two) times a day 1 Active oxyCODONE-aceta minophen (PERCOCET) 10-325 MG per tablet Take 1 tablet by mouth 3 (three) times a day if needed 1 Active oxyCODONE (ROXICODONE) 5 MG immediate release tablet TAKE 1 TABLET BY MOUTH EVERY 6 HOURS NEEDED FOR PAIN. 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 Chronic kidney disease stage 2 08/21/2019 Immunizations Name Administration Dates Next Due Influenza, MDCK, PF, Quadrivalent 05/01/2019 Family History Medical History Relation Comments Hypertension Father Stroke Father Other Sibling brother hole in two lower ventricles Relation Status Comments Father Sibling Social History Tobacco Use Types Packs/Day Years Used Date Smoking Tobacco: Every Day Comments Unknown Sex and Gender Information Value Date Recorded Sex Assigned at Not on file Legal Sex Female 4:37 PM EST Gender Identity Not on file Sexual Orientation Not on file Last Filed Vital Signs Vital Sign Reading Time Taken Comments Blood Pressure 110/70 08/24/2019 1:52 PM EST Pulse - - Temperature - - Respiratory Rate - - Oxygen Saturation - - Inhaled Oxygen Concentration - - Weight 72.6 kg (160 lb) 08/24/2019 1:52 PM EST Height 160 cm (5' 3 ) 03/02/2019 12:00 PM EDT Body Mass Index 28.34 03/02/2019 12:00 PM EDT Plan of Treatment Health Maintenance Due Date Last Done Comments Breast Cancer Screening 1969 Pneumococcal Vaccine: Pediat rics (0 to 5 Years) and At-Risk Patients (6 to 64 Years) (1 of 2 - PCV) 1975 Hepatitis B Vaccine (1 of 3 - 19+ 3-dose series) 01/12 Colorectal Cancer Screening: Annual FOBT 2018 Colorectal Cancer Screening: Colonoscopy 2018 Colorectal Cancer Screening: Sigmoidoscopy 2018 Influenza Vaccine (#1) 2024 05/01/2019 Insurance [employer] [id number] Care Teams Crisis Manager Relationship Specialty Start Date End Date Tigre Tate MD [facility] [address] [place] [address] [address] [place], [place] PCP - General 06/23/19
== END 2024-10-22 10:25 | disposition home or self-care (01) ==
PROVIDERS: PCP Internal Medicine; Visit Provider Anesthesiology
DX: G89.4 Chronic pain syndrome (principal); M96.1 Postlaminectomy syndrome, not elsewhere classified; M47.816 Spondylosis without myelopathy or radiculopathy, lumbar region; G90.50 Complex regional pain syndrome I, unspecified; Z45.1 Encounter for adjustment and management of infusion pump
CPT/HCPCS: 62370; 99213

== ENCOUNTER → 2024-10-22 09:58 | Outpatient (BNVA) | payer OTHER, SELFPAY | PROVIDERS: PCP Internal Medicine; Visit Provider Anesthesiology | DX: G89.4 Chronic pain syndrome (principal); M96.1 Postlaminectomy syndrome, not elsewhere classified; M47.26 Other spondylosis with radiculopathy, lumbar region; M62.830 Muscle spasm of back; M53.3 Sacrococcygeal disorders, not elsewhere classified; M46.1 Sacroiliitis, not elsewhere classified; G90.50 Complex regional pain syndrome I, unspecified; F43.23 Adjustment disorder with mixed anxiety and depressed mood; Z45.1 Encounter for adjustment and management of infusion pump; Z79.891 Long term (current) use of opiate analgesic | CPT/HCPCS: 62370; 99212 ==